=== PATIENT | male | born 2000 | race Caucasian/White ===

== ENCOUNTER 2021-01-01 04:44 | Emergency (ER) | payer OTHER ==
[~2021-01-01] VITALS: Ht 182.9 cm; Wt 72.9 kg
[2021-01-01] MEDS ORDERED: IBUP80TA PO (05:03)
[2021-01-01] MEDS ORDERED: ACET32TAB PO (05:03)
[2021-01-01] MEDS ORDERED: ACETAMINOPHEN TAB 650MG DOSE (2X325MG) PO ONE (06:15)
[2021-01-01] MEDS ORDERED: ONDANSETRON 4MG/2ML VIAL IV ONE (06:15)
[2021-01-01] MEDS ORDERED: NS 1,000 ML IV ONE (06:15)
[2021-01-01 06:49] LABS: HEMATOCRIT 42.8 % (42.0-52.0); HEMOGLOBIN 15.4 g/dl (13.5-17.5); MEAN CORPUSCULAR HEMOGLOBIN 30.5 pg (27.0-33.0); MEAN CORPUSCULAR VOLUME 84.8 fl (80.0-96.0); PLATELET COUNT, AUTOMATED 249 10^3/uL (150-450); RED BLOOD COUNT 5.05 10^6/uL (4.30-6.10); WHITE BLOOD COUNT 8.1 10^3/uL (4.0-10.0)
[2021-01-01] MEDS ORDERED: POTASSIUM CHLORIDE 10 MEQ SR TABLET PO ONE (07:55)
[2021-01-01] MEDS ORDERED: ONDA4TAB6 PO (07:55)
[2021-01-01 08:01] VITALS: BP 128/73
== END 2021-01-01 08:25 | disposition home or self-care (01) ==
LOC: M ED 04:44
DX: R11.2 Nausea with vomiting, unspecified (principal); T50.B95A Adverse effect of other viral vaccines, initial encounter
CPT/HCPCS: 80047; 85027; 96361; 96374; 99284; J2405

== ENCOUNTER 2021-06-27 07:31 | Emergency (ER) | payer OTHER ==
[~2021-06-27] VITALS: Ht 193 cm; Wt 73.3 kg
[~2021-06-27 07:31] MED LIST: ACET32TAB PO; IBUP80TA PO; ONDA4TAB6 PO
--- NOTE | 2021-06-27 08:04 | REP ---
INDICATION: PAIN. COMPARISON: None. TECHNIQUE: Four views FINDINGS: No acute fracture or destructive osseous lesion. The ulnar styloid is either none fused or there is an old healed fracture. IMPRESSION: No acute osseous abnormality. <Electronically signed by Hai Mota > 06/27/21 0802
[2021-06-27 11:10] VITALS: BP 124/82
== END 2021-06-27 11:11 | disposition home or self-care (01) ==
LOC: M ED 07:31
DX: M25.531 Pain in right wrist (principal); X50.0XXA Overexertion from strenuous movement or load, initial encounter; Y92.9 Unspecified place or not applicable; Y93.9 Activity, unspecified; Y99.0 Civilian activity done for income or pay

== ENCOUNTER 2021-07-31 05:51 | Emergency (ER) | payer OTHER ==
[~2021-07-31] VITALS: Ht 188 cm; Wt 74.7 kg
--- OUTSIDE RECORDS SUMMARY | 2021-07-31 05:57 | CCD | Continuity of Care Document ---
Author Author Shantell PRADO M.D. Organization Unknown Address [address] [place] [address] Phone [phone] Care Team Providers Care Manager Decision Support Name Role Phone Deondre SultanaM [phone] Problems Active Problems Provider Date Numbness of hand Travis Prado M.D. Onset: 01/22/2021 Ulnar nerve entrapment at right elbow Travis Prado M.D. On set: 01/22/2021 Social History Type Date Description Comments Sex Unknown Tobacco Use Start: Unknown Patient has never smoked Allergies, Adverse Reactions, Alerts Description No Known Drug Allergies Medications Active Medications SIG Qnty Indications Ordering Provide r Date Tylenol 8 Hour 650mg Tablets ER Travis Prado M.D. 01/22/2021 Immunizations Description No Information Available Vital Signs Date Vital Result Comment 01/24/2021 11:39am BP Systolic 120 mmHg BP Diastolic 80 mmHg Heart Rate 72 /min Height 72 inches 6'0" Weight 168.00 lb BMI (Body Mass Index) 22.8 kg/m2 [place] Body Weight 178 lb Results Description No Information Available Procedures Date Code Description Status 05/14/2021 29870 Office Consultation Level 4 Comp leted 04/25/2021 95007 Nerve Conduction 9-10 Studies Co mpleted 04/25/2021 52358 Needle Electromyogra phy Non Extremity Done With Nerve Conduction Completed 04/25/2021 51883 Needle Electromyography Complete , Five Or More Muscles Studied Completed 01/24/2021 75722 Nerve Conduction 9-10 Studies Co mpleted 01/24/2021 58184 Needle Electromyogra phy Non Extremity Done With Nerve Conduction Completed 01/24/2021 16084 Needle Electromyography Complete , Five Or More Muscles Studied Completed Medical Devices Description No Information Available Encounters Type Date Location Provider Dx Diagnosis Office Visit 05/14/2021 3:00p Main office - [place] Marisa Prado M.D. M79.601 Pain in right arm M62.441 Contracture of muscle, right hand R20.2 Paresthesia of skin M25.511 Pain in right shoulder Assessments Date Code Description Provider 05/14/2021 M79.601 Pain in right arm Marisa Eve, M.DEstefania 05/14/2021 M62.441 Contracture of muscle, right cheung d Marisa Eve, M.DEstefania 05/14/2021 R20.2 Paresthesia of skin Marisa Eve , Lorenzo.DEstefania 05/14/2021 M25.511 Pain in right shoulder Marisa La tif, M.DEstefania 04/25/2021 M79.641 Pain in right hand Travis Eve, M.D. 04/25/2021 G56.00 Carpal tunnel syndrome, unspecif ied upper limb Travis Eve, M.D. 04/25/2021 M25.511 Pain in right shoulder Travis Lat if, M.D. 04/25/2021 M54.12 Radiculopathy, cervical region A bdul Eve, M.D. 04/25/2021 M25.549 Pain in joints of unspecified mohan nd Travis Eve, M.D. 04/25/2021 M25.519 Pain in unspecified shoulder Abd ul Eve, M.D. 01/24/2021 G56.01 Carpal tunnel syndrome, right up per limb Travis Eve, M.D. 01/24/2021 M25.549 Pain in joints of unspecified mohan nd Travis Eve, M.D. 01/24/2021 R20.2 Paresthesia of skin Travis Eve, M.D. 01/24/2021 G56.20 Lesion of ulnar nerve, unspecifi ed upper limb Travis Eve, M.D. 01/24/2021 M79.601 Pain in right arm Travis Eve, M .DEstefania Plan of Treatment Future Appointment(s):* 06/11/2021 10:30 am - Marisa Prado M.D. at [facility] Functional Status Description No Information Available Mental Status Description No Information Available Referrals Description No Information Available
--- OUTSIDE RECORDS SUMMARY | 2021-07-31 05:57 | CCD | Continuity of Care Document ---
Author Shantell Davila M.D. Organization Unknown Address [address] [place] [address] Phone [phone] Care Team Providers Care Manager Steel Name Role Phone Deondre SultanaM [phone] Problems Active Problems Provider Date Numbness of [...] lb BMI (Body Mass Index) 22.8 kg/m2 [place] Body Weight 178 lb Results Description No Information Available Procedures Date Code Description Status 04/25/2021 00820 Nerve Conduction 9-10 Studies Co mpleted 04/25/2021 94611 Needle Electromyogra phy Non Extremity Done With Nerve Conduction Completed 04/25/2021 56715 Needle Electromyography Complete , Five Or More Muscles Studied Completed 01/24/2021 31200 Nerve Conduction 9-10 Studies Co mpleted 01/24/2021 94779 Needle Electromyogra phy Non Extremity Done With Nerve Conduction Completed 01/24/2021 67357 Needle Electromyography Complete , Five Or More Muscles Studied Completed Medical Devices Description No Information Available Encounters Description No Information Available Assessments Date Code Description Provider 04/25/2021 M79.641 Pain in right hand Travis [...] Pain in right arm Travis Eve, M .D. Plan of Treatment Future Appointment(s):* 06/11/2021 10:30 am - Marisa Prado M.D. at Main office - [place] Functional Status Description No Information Available Mental Status Description No Information Available Referrals Description No Information Available
--- OUTSIDE RECORDS SUMMARY | 2021-07-31 05:57 | CCD | Continuity of Care Document ---
Author Author Shantell PRADO M.D. Organization Unknown Address [address] [place] [address] Phone [phone] Care Team Providers Care Associate Professor Of Church Music Name Role Phone Deondre Sultana AUTM [phone] Problems Active Problems Provider Date Numbness of hand Travis Prado M.D. Onset: 01/22/2021 Ulnar nerve entrapment at right elbow Travis Prado M.D. On set: 01/22/2021 Social History Type Date Description Comments Sex Unknown Tobacco Use Start: Unknown Patient has never smoked Allergies and adverse reactions Description No Known Drug Allergies Medications Active Medications SIG Qnty Indications Ordering Provide r Date Tylenol 8 Hour 650mg Tablets ER Travis Prado M.D. 01/22/2021 Immunizations Description No Information Available Vital Signs Date Vital Result Comment 01/24/2021 11:39am BP Systolic 120 mmHg BP Diastolic 80 mmHg Heart Rate 72 /min Height 72 inches 6'0" Weight 168.00 lb BMI (Body Mass Index) 22.8 kg/m2 [place] Body Weight 178 lb Results Description No Information Available Procedures Date Code Description Status 06/12/2021 46676 MRI Upper Extremity Joint Comple jovan 06/12/2021 59952 MRI Upper Extremity Joint Comple jovan 06/12/2021 59977 MRI Brain W/O Contrast Completed 06/12/2021 39468 MRI Brain W/O Contrast Completed 05/14/2021 69548 Office Consultation Level 4 Comp leted 04/25/2021 73774 Nerve Conduction 9-10 Studies Co mpleted 04/25/2021 56209 Needle Electromyogra phy Non Extremity Done With Nerve Conduction Completed 04/25/2021 03936 Needle Electromyography Complete , Five Or More Muscles Studied Completed 01/24/2021 33099 Nerve Conduction 9-10 Studies Co mpleted 01/24/2021 74388 Needle Electromyogra phy Non Extremity Done With Nerve Conduction Completed 01/24/2021 29440 Needle Electromyography Complete , Five Or More Muscles Studied Completed Medical Devices Description No Information Available Encounters Type Date Location Provider Dx Diagnosis Office Visit 05/14/2021 3:00p Main office - [place] Marisa Prado M.D. M79.601 Pain in right arm M62.441 Contracture of muscle, right hand R20.2 Paresthesia of skin M25.511 Pain in right shoulder Assessments Date Code Description Provider 06/12/2021 R20.2 Paresthesia of skin Travis Eve, M.DEstefania 06/12/2021 R20.2 Paresthesia of skin MRI 06/12/2021 M79.601 Pain in right arm Travis Eve, M .D. 06/12/2021 M79.601 Pain in right arm MRI 05/14/2021 M79.601 Pain in right arm Marisa Eve, M.D. 05/14/2021 M62.441 Contracture of muscle, right cheung d Marisa Eve, M.DEstefania 05/14/2021 R20.2 Paresthesia of skin Marisa Eve , M.D. 05/14/2021 M25.511 Pain in right shoulder Marisa La tif, M.D. 04/25/2021 M79.641 Pain in right hand Travis [...] in joints of unspecified mohan nd Travis Prado M.D. 01/24/2021 R20.2 Paresthesia of skin Travis Prado M.D. 01/24/2021 G56.20 Lesion of ulnar nerve, unspecifi ed upper limb Travis Prado M.D. 01/24/2021 M79.601 Pain in right arm Lorenzo Foley Plan of Treatment No Information Available Functional Status Description No Information Available Mental Status Description No Information Available Referrals Refer to Reason for Referral Status Appt Date Created
--- OUTSIDE RECORDS SUMMARY | 2021-07-31 05:57 | CCD | Continuity of Care Document ---
Author Author Shantell RUIZ Organization Unknown Address [address] [place] [address] Phone [phone] Care Team Providers Care Shaping Machine Operator Name Role Phone Deondre Sultana [facility] [phone] Problems Active Problems Provider Date Numbness of [...] lb BMI (Body Mass Index) 22.8 kg/m2 [place] Body Weight 178 lb Results Description No Information Available Procedures Date Code Description Status 06/12/2021 78032 MRI Upper Extremity Joint Comple jovan 06/12/2021 57382 MRI Upper Extremity Joint Comple jovan 06/12/2021 81110 MRI Brain W/O Contrast Completed 06/12/2021 00050 MRI Brain W/O Contrast Completed 05/14/2021 40777 Office Consultation Level 4 Comp leted 04/25/2021 37865 Nerve Conduction 9-10 Studies Co mpleted 04/25/2021 19269 Needle Electromyogra phy Non Extremity Done With Nerve Conduction Completed 04/25/2021 41255 Needle Electromyography Complete , Five Or More Muscles Studied Completed 01/24/2021 23357 Nerve Conduction 9-10 Studies Co mpleted 01/24/2021 10020 Needle Electromyogra phy Non Extremity Done With Nerve Conduction Completed 01/24/2021 96856 Needle Electromyography Complete , Five Or More Muscles Studied Completed Medical Devices Description No Information Available Encounters Type Date Location Provider Dx Diagnosis Office Visit 05/14/2021 3:00p Main office - [place] Marisa Eve , M.DEstefania M79.601 Pain in right arm M62.441 Contracture of muscle, right hand R20.2 Paresthesia of skin M25.511 Pain in right shoulder Assessments Date Code Description Provider 06/12/2021 R20.2 Paresthesia of skin Travis Eve, M.D. 06/12/2021 R20.2 Paresthesia of skin MRI 06/12/2021 M79.601 Pain in right arm Travis Eve, M .D. 06/12/2021 M79.601 Pain in right arm MRI 05/14/2021 M79.601 Pain in right arm Marisa Eve, M.D. 05/14/2021 M62.441 Contracture of muscle, right cheung d Marisa Eve, M.D. 05/14/2021 R20.2 Paresthesia of skin Marisa Eve [...] joints of unspecified mohan nd Travis Eve, Tj 01/24/2021 R20.2 Paresthesia of skin Travis Eve, Tj 01/24/2021 G56.20 Lesion of ulnar nerve, unspecifi ed upper limb Travis Eve, Tj 01/24/2021 M79.601 Pain in right arm Lorenzo Foley Plan of Treatment Future Appointment(s):* 07/02/2021 10:45 am - Marisa Prado M.D. at Main office - [place] Functional Status Description No Information Available Mental Status Description No Information Available Referrals Refer to Reason for Referral Status Appt Date Created
--- OUTSIDE RECORDS SUMMARY | 2021-07-31 05:57 | CCD ---
Author Author [facility] Organization [facility] Address Unknown Phone Unavailable Care Team Providers Care Hotshot Superintendent Name Role Phone ANTIONE BLAS MD Unavailable Unavailable ANTIONE BLAS MD Unavailable Unavailable ANTIONE BLAS MD Unavailable Unavailable ANTIONE BLAS MD Unavailable Unavailable ANTIONE BLAS MD Unavailable Unavailable ANTIONE BLAS MD Unavailable Unavailable ANTIONE BLAS MD Unavailable Unavailable ANTIONE BLAS MD Unavailable Unavailable ANTIONE BLAS MD Unavailable Unavailable ANTIONE BLAS MD Unavailable Unavailable ANTIONE BLAS MD Unavailable Unavailable ANTIONE BLAS MD Unavailable Unavailable ANTIONE BLAS MD Unavailable Unavailable ANTIONE BLAS MD Unavailable Unavailable ANTIONE BLAS MD Unavailable Unavailable ANTIONE BLAS MD Unavailable Unavailable ANTIONE BLAS MD Unavailable Unavailable ANTIONE BLAS MD Unavailable Unavailable ANTIONE BLAS MD Unavailable Unavailable ANTIONE BLAS MD Unavailable Unavailable ANTIONE BLAS MD Unavailable Unavailable ANTIONE BLAS MD Unavailable Unavailable ANTIONE BLAS MD Unavailable Unavailable ANTIONE BLAS MD Unavailable Unavailable ANTIONE BLAS MD Unavailable Unavailable ANTIONE BLAS MD Unavailable Unavailable ANTIONE BLAS MD Unavailable Unavailable ANTIONE BLAS MD Unavailable Unavailable ANTIONE BLAS MD Unavailable Unavailable ANTIONE BLAS MD Unavailable Unavailable ANTIONE BLAS MD Unavailable Unavailable ANTIONE BLAS MD Unavailable Unavailable ANTIONE BLAS MD Unavailable Unavailable ANTIONE BLAS MD Unavailable Unavailable ANTIONE BLAS MD Unavailable Unavailable ANTIONE BLAS MD Unavailable Unavailable ANTIONE BLAS MD Unavailable Unavailable ANTIOEN BLAS MD Unavailable Unavailable ANTIONE BLAS MD Unavailable Unavailable ROOPA, ANTIONE MD Unavailable Unavailable ROOPA, ANTIONE MD Unavailable Unavailable ROOPA, ANTIONE MD Unavailable Unavailable ROOPA, ANTIONE MD Unavailable Unavailable UNKNOWN, [facility] Unavailable Unavailable MONA, L PAULO MD Unavailable Unavailable MONA, L PAULO MD Unavailable Unavailable MONA, L PAULO MD Unavailable Unavailable MONA, L PAULO MD Unavailable Unavailable MONA, L PAULO MD Unavailable Unavailable MONA, L PAULO MD Unavailable Unavailable MONA, L PAULO MD Unavailable Unavailable MONA, L PAULO MD Unavailable Unavailable MONA, L PAULO MD Unavailable Unavailable MONA, L PAULO MD Unavailable Unavailable MONA, L PAULO MD Unavailable Unavailable MONA, L PAULO MD Unavailable Unavailable MONA, L PAULO MD Unavailable Unavailable MONA, L PAULO MD Unavailable Unavailable MONA, L PAULO MD Unavailable Unavailable MONA, L PAULO MD Unavailable Unavailable MONA, L PAULO MD Unavailable Unavailable MONA, L PAULO MD Unavailable Unavailable MONA, L PAULO MD Unavailable Unavailable MONA, L PAULO MD Unavailable Unavailable Re-disclosure Warning The records that you are about to access may contain information from federally-assisted alcohol or drug abuse programs. If such information is present, then the following federally mandated warning applies: This information has been disclosed to you from records protected by federal confidentiality rules (42 CFR part 2). The federal rules prohibit you from making any further disclosure of this information unless further disclosure is expressly permitted by the written consent of the person to whom it pertains or as otherwise permitted by 42 CFR part 2. A general authorization for the release of medical or other information is NOT sufficient for this purpose. The Federal rules restrict any use of the information to criminally investigate or prosecute any alcohol or drug abuse patient.The records that you are about to access may contain highly sensitive health information, the redisclosure of which is protected by Article 27-F of the [facility] Public Health law. If you continue you may have access to information: Regarding HIV / AIDS; Provided by facilities licensed or operated by the [facility] Office of Mental Health; or Provided by the [facility] Office for People With Developmental Disabilities. If such information is present, then the following [facility] mandated warning applies: This information has been disclosed to you from confidential records which are protected by state law. State law prohibits you from making any further disclosure of this information without the specific written consent of the person to whom it pertains, or as otherwise permitted by law. Any unauthorized further disclosure in violation of state law may result in a fine or mcfp sentence or both. A general authorization for the release of medical or other information is NOT sufficient authorization for further disc losure. Encounters Encounter Providers Location Date Indications Data Source(s ) Outpatient Attender: ANTIONE BLAS MD Main office - [facility] 05/14/2021 03:00:00 PM EDT [facility] ([facility] Emergency Attender: PAULO DUNN MDConsultant: EDILBERTO KUMAR OWN 03/08/2021 11:55:00 PM EDT - 03/09/2021 04:05:00 AM EDT [facility] Patient discharged. Immunizations Vaccine Date Status Description Data Source(s) COVID-19 VACCINE Pfizer 12/31/2020 12:00:00 AM EDT completed [facility] Vaccine Series Complete: NOThis Data was Submitted to [facility] Via [employer]. Medications Medication Brand Name Start Date Product Form Dose Route Admi nistrative Instructions Pharmacy Instructions Status Indications Reaction Description Data Source(s) 8 HR Acetaminophen 650 MG Extended Release Oral Tablet [Tyle nol] Tylenol 8 Hour 01/22/2021 12:00:00 AM EDT active [facility] ([facility] ) Insurance Providers Payer name Policy type / Coverage type Policy ID Covered democrat ID Covered democrat's relationship to renner Policy Renner Plan Information [facility] ACTIVE DUTY [id number] SP [id number] [facility] HUMANA - O/P [id number] Problems, Conditions, and Diagnoses Code Display Name Description Problem Type Effective Dates Data Source(s) [id number] Migraine without aura, not intractable, without status migrainosus Migraine without aura, not intractable, without status migrainosus Diagnosis 03/08/2021 11:55:00 PM EDT [facility] R519 Headache, unspecified Headache, unspecified Diagnosis 03/08/2021 11:55:00 PM EDT [facility] [id number] 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 Problem 01/22/2021 12:00:00 AM EDT [facility] ([facility]) [id number] Numbness of hand Numbness of hand Problem 01/22/2021 12 :00:00 AM EDT [facility] ([facility] ) Surgeries/Procedures Procedure Description Date Indications Data Source(s) MRI BRAIN BRAIN STEM W/O CONTRAST MATERIAL 06/12/2021 12:00:00 AM EDT [facility] ([facility] ) MRI BRAIN BRAIN STEM W/O CONTRAST MATERIAL 06/12/2021 12:00:00 AM EDT [facility] ([facility] ) MRI Upper Extremity Joint 06/12/2021 12:00:00 AM EDT [facility] ([facility] ) MRI Upper Extremity Joint 06/12/2021 12:00:00 AM EDT [facility] ([facility], ) OFFICE CONSULTATION NEW/ESTAB PATIENT 60 MIN 12:00:00 AM EDT [facility] ([facility], ) Needle electromyography, each extremity, with related paraspinal areas, when performed, done with nerve conduction, amplitude and latency/velocity study; complete, five or more muscles studied, innervated by three or more nerves or four or more spinal levels (list separately in addition to the code for primary procedure). 04/25/2021 12:00:00 AM EDT [facility] ([facility], ) Needle Electromyography Non Extremity Done With Nerve Conduc tion 04/25/2021 12:00:00 AM EDT [facility] ([facility] ) Nerve Conduction 9-10 Studies 04/25/2021 12:00:00 AM E DT [facility] ([facility], ) Needle electromyography, each extremity, with related paraspinal areas, when performed, done with nerve conduction, amplitude and latency/velocity study; complete, five or more muscles studied, innervated by three or more nerves or four or more spinal levels (list separately in addition to the code for primary procedure). 01/24/2021 12:00:00 AM EDT [facility] ([facility], ) Needle Electromyography Non Extremity Done With Nerve Conduc tion 01/24/2021 12:00:00 AM EDT [facility] ([facility] ) Nerve Conduction 9-10 Studies 01/24/2021 12:00:00 AM E DT [facility] ([facility] ) Results ID Date Data Source [id number] 03/10/2021 09:58:00 [place] [address] RESPIRATORY CARE REPORT ==== ---------NAME------- NUMBER SEX AGE ADMIT DISC. XRAY# F/C TYPEROMAN SHANTELL Gutierrez [id number] M 20 03/08/21 03/09/21 [id number] SB4 E/R DATE OF : 2000 M/R# [id number] PH#: [phone] TR-07 LOCATION: EMERGENCY DEPT EKG 25008 COMP LETE:03/09/21 00:34 VMT 30007 PHYSICIAN: WILFREDO DUNN NOR Name Value Range Interpretation Code Description Data Norma rce(s) Supporting Document(s) ID Date Data Source [id number] 03/08/2021 11:55:00 PM EDT [facility] 1 OrderSheet [facility] Emergency Department [address] [place] [address] Phone #: ext- [phone] 03/08/2021 23:38 Patient: SHANTELL MARRUFO Sex: M : 2000 Age: 20yWEIGHT:74.3 kg (S) HEIGHT:72 inches (S) BMI:22.2ALLERGIES: No Known Drug AllergyCHIEF COMPLAINT: headacheDIAGNOSIS: Anxiety, MigraineLAB ORDERSOrder Description Priority Entered Acknowledged InitialedCBC w Diff STAT 23:44 03/08/2021 00:23 03/09/2021 Paulo Dunn MD; Radha Hickey R.N.CMP STAT 23:44 03/08/2021 00:23 03/09/2021 Paulo Dunn MD; Radha Hikcey R.N.Troponin-T STAT 23:44 03/08/2021 00:23 03/09/2021 Paulo Dunn MD; Radha Hickey R.N.TSH STAT 23:44 03/08/2021 00:23 03/09/2021 Paulo Dunn MD; Radha Hickey R.N.ETOH STAT 23:44 03/08/2021 00:23 03/09/2021 Paulo Dunn MD; Radha Hickey R.N.Urinalysis (Clean STAT 23:44 03/08/2021 Ack'd: 00:23 00:52 03/09/2021atch) Paulo Dunn MD; 03/09/2021 Tristian Edward Laura R.N.Urine Drug Screen STAT 23:44 03/08/2021 Ack'd: 00:23 00:52 03/09/2021 Paulo Dunn MD; 03/09/2021 Tristian Edward Laura R.N.Acetaminophen STAT 23:44 03/08/2021 00:23 03/09/2021evel Paulo Dunn MD; Radha Hickey R.N.Salicylate Level STAT 23:44 0 03/08/2021 00:23 03/09/2021 Paulo Dunn MD; Radha Hickey R.N. 2 OrderSheet [facility] Emergency Department [address] [place] [address] Phone #: ext- [phone] 03/08/2021 23:38 Patient: SHANTELL MARRUFO Sex: M : 2000 Age: 20yD-Dimer STAT 23:50 03/08/2021 00:23 03/09/2021 Paulo Dunn MD; Radha Hickey R.N.DIAGNOSTIC STUDY ORDERSOrder Description Priority Entered Acknowledged InitialedCT Head W/O Cont STAT 23:50 03/08/2021 00:23 03/09/2021(Oxygen?(No)) Paulo Dunn MD; Radha Hickey R.N. Reason for Study: hallucinationsMEDICATION/IV/DRIP/FLUID ORDERSOrder Description Priority Entered Acknowledged InitialedToradol IVP 30 mg 03:38 03/09/2021 03:52 Edelmira,(NOW x1) Paulo Dunn MD; Radha DollGENERAL ORDERSOrder Description Priority Entered Acknowledged InitialedEKG 23:44 03/08/2021 23:51 Mona Hickey Norma MD; Radha Doll[Electronically signed by Paulo Dunn MD (03:46 03/09/2021)][Electronically signed by Radha Hickey R.N. (04:05 03/09/2021)][Electronically locked by Radha Hickey R.N. (04:05 03/09/2021)] Name Value Range Interpretation Code Description Data Norma rce(s) Supporting Document(s) ID Date Data Source [id number] 03/08/2021 11:55:00 PM EDT [facility] 1 Medication Reconciliation Report [facility] Emergency Department [address] [place] [address] Phone #: ext- [phone] 03/08/2021 23:38 Patient: SHANTELL MARRUFO Sex: M : 2000 Age: 20yWeight: 74.3 kgHeight/Length: 72 in.BMI: 22.2ALLERGIES: No Known Drug AllergyThe patient's Home Medications are listed below:NONE.The source(s) of the original Home Medication information:Not obtained.The following Medications were given to the patient in the Emergency Department:Toradol [IVP] IVP 30 mg, administered: 03:52 03/09/2021The following Medications were prescribed to the patient:None. Name Value Range Interpretation Code Description Data Norma rce(s) Supporting Document(s) ID Date Data Source [id number] 03/08/2021 11:55:00 PM EDT [place] [address] Medication Administration Record [facility] Emergency Department [address] [place] [address] Phone #: ext- [phone] 03/08/2021 23:38 Patient: SHANTELL MARRUFO Sex: M : 2000 Age: 20yWeight: 74.3 kgHeight/Length: 72 inBMI: 22.2ALLERGIES: No Known Drug Allergy Date/Time Medication Administered Medication OrderedGiven TORADOL [IVP] (KETOROLAC Toradol IVP 30 mg (NOW x1)03:52 03/09/2021 TROMETHAMINE)Radha Hickey R.N. Dose: 30 mg IVP Site: [facility] Name Value Range Interpretation Code Description Data Norma rce(s) Supporting Document(s) ID Date Data Source [id number] 03/08/2021 11:55:00 PM EDT [facility] 1 General Instructions [facility] Emergency Department [address] [place] [address] Phone #: ext- [phone] 03/08/2021 23:38 Patient: SHANTELL MARRUFO Sex: M : 2000 Age: 20yAcute migraine headache.INSTRUCTIONS(return if worse or any new symptoms. Take all medications as previously instructed. Start seeing atherapist or psychiatrist so you can develop coping mechanisms to deal with the significant amount ofstress you are undergoing.).Warnings: Further evaluation is necessary.GENERAL WARNINGS: Return or contact your physician immediately if your condition worsens orchanges unexpectedly, if not improving as expected, or if other problems arise.Your Current Medications: .No home medication.Follow- up:Follow up with your doctor even if well. Call for an appointment. Reason for referral: evaluation. Summaryof care provided to patient via paper.Understanding of the discharge instructions verbalized by patient. ADDITIONAL INFORMATIONAnxiety ReactionAnxiety is the feeling we all get when we think something bad might happen. It is a normal responseto stress and usually causes only a mild reaction. When anxiety becomes more severe, itcan interfere with daily life. In some cases, you may not even be aware of what it i s you're anxiousabout. There may also be a genetic link or it may be a learned behavior in the home.Both psychological and physical triggers cause stress reaction. It's often a response to fear oremotional stress, real or imagined. This stress may come from home, family, work, or socialrelationships.During an anxiety reaction, you may feel: Helpless 2 General Instructions [facility] Emergency Department [address] [place] [address] Phone #: ext- [phone] 03/08/2021 23:38 Patient: SHANTELL MARRUFO Sex: M : 2000 Age: 20y Nervous Depressed IrritableYour body may show signs of anxiety in many ways. You may experience: Dry mouth Shakiness Dizziness Weakness Trouble breathing Breathing fast (hyperventilating) Chest pressure Sweating Headache Nausea Diarrhea Tiredness Inability to sleep Sexual problemsHome care Try to locate the sources of stress in your life. They may not be obvious. These may include: o Daily hassles of life (such as traffic jams, missed appointments, or car troubles) o Major life changes, both good (new baby or job promotion) and bad (loss of job or loss of loved one) o Overload: feeling that you have too many responsibilities and can't take care of all of them at once o Feeling helpless or feeling that your problems are beyond what you're able to solve Notice how your body reacts to stress. Learn to listen to your body signals. This will help you 3 General Instructions [facility] Emergency Department [address] [place] [address] Phone #: ext- [phone] 03/08/2021 23:38 Patient: SHANTELL MARRUFO Sex: M : 2000 Age: 20y take action before the stress becomes severe. When you can, do something about the source of your stress. (Avoid hassles, limit the amount of change that happens in your life at one time and take a break when you feel overloaded). Unfortunately, many stressful situations can't be avoided. It is necessary to learn how to better manage stress. There are many proven methods that will reduce your anxiety. These include simple things like exer cise, good nutrition, and adequate rest. Also, there are certain techniques that are helpful: o Relaxation o Breathing exercises o Visualization o Biofeedback o MeditationFor more information about this, consult your healthcare provider or go to a local bookstore fadi the many books and tapes available on this subject.Follow-up careIf you feel that your anxiety is not responding to self-help measures, contact your healthcare provideror make an appointment with a counselor. You may need short- term psychological counseling andtemporary medicine to help you manage stress.Call [phone] if any of these happen: Trouble breathing Confusion Drowsiness or trouble wakening Fainting or loss of consciousness Rapid heart rate Seizure New chest pain that becomes more severe, lasts longer, or spreads into your shoulder, arm, neck, jaw, or back 4 General Instructions [facility] Emergency Department [address] [place] [address] Phone #: [phone] ext- [phone] 03/08/2021 23:38 Patient: SHANTELL MARRUFO Sex: M : 2000 Age: 20yWhen to seek medical adviceCall your healthcare provider right away if any of these happen: Your symptoms get worse Severe headache not relieved by rest and mild pain reliever [id number] [employer]. [address] [place] [address]. All rights reserved. This information is not intended as asubstitute for professional medical care. Always follow your healthcare professional's instructions.Migraine HeadacheA migraine headache is an often severe type of headache. It's different from other types ofheadaches in that symptoms other than pain occur with the it. For instance, a classic migraineheadache means visual symptoms (or aura) such as flashes of light, blind spots or other visionchanges, warns you a headache is coming on. Nausea and vomiting, lightheadedness, sensitivity tolight or sound, and other visual disturbances are common migraine symptoms. The pain may lastfrom a few hours to several days. It's not clear why migraines occur, but certain factors called triggerscan raise the risk of having a migraine attack. A migraine may be triggered by emotional stress ordepression, or by hormone changes during the menstrual cycle. Other triggers include certain birthcontrol pills, overuse of migraine medicines, alcohol or caffeine, foods with tyramine such as agedcheese and wine, eyestrain, weather changes, missed meals, or too little or too much sleep.Home careFollow these tips when taking care of yourself at home: Don't drive yourself home if you were given pain medicine for your headache or are having visual symptoms. Instead, have someone else drive you home. Try to sleep when you get home. You should feel much better when you wake up. Cold can help ease migraine symptoms. Put an ice pack wrapped in a thin towel on your forehead or at the base of your skull. Put heat on the back of your neck to help ease any neck spasm. Drink only clear liquids or eat a light diet until your symptoms get better. This will help you prevent nausea and vomiting.How to prevent migrainesPay attention to what seems to trigger your headache. Try to stay away from the triggers when youcan. If you have headaches often, consider keeping a headache diary. In it, write down what youwere doing, feeling, or eating in the hours before each headache. Show this to your healthcareprovider to help find the cause of your headaches. 5 General Instructions [facility] Emergency Department [address] [place] [address] Phone #: ext- [phone] 03/08/2021 23:38 Patient: SHANTELL MARRUFO Sex: M : 2000 Age: 20yIf stress seems to be a trigger for your headaches, figure out what is causing stress in your life. Learnnew ways to handle your stress. Ideas include regular exercise, biofeedback, self-hypnosis, yoga,and meditation. Talk with your healthcare provider to find out more information about managingstress. Many books and digital media are also available on this subject.Tyramine is a substance found in many foods. It can trigger a migraine in some people. These foodscontain tyramine: Chocolate Yogurt All cheeses, but especially aged cheeses Smoked or pickled fish and meat, including corado, caviar, bologna, pepperoni, and salami Liver Avocados Bananas Figs Raisins Red wineTry staying away from these foods for 1 to 2 months to see if you have fewer headaches.How to treat future headaches Take time out at the first sign of a headache, if possible. Find a quiet, dark, comfortable place to sit or lie down. Let yourself relax or sleep. Put an ice pack wrapped in a thin towel on your forehead or on the area of greatest pain. A heating pad and massage may help if you are having a muscle spasm and tightness in your neck. If you have been prescribed a medicine to stop a migraine headache, use this at the first warning sign of the headache for best results. First signs may be an aura or pain. If you have been prescribed a medicine to prevent the headaches, it's important to take the medicine as directed. Many of these medicines may take a few weeks to start preventing headaches, so it's important to not give up on them right away. If you continue to have just as many headaches after taking these medicines for a while, talk with your doctor to see if the dose needs to be changed or if a different medicine is advised. 6 General Instructions [facility] Emergency Department [address] [place] [address] Phone #: ext- [phone] 03/08/2021 23:38 Patient: SHANTELL MARRUFO Sex: M : 2000 Age: 20y If you need to take medicine often for your migraine, talk with your healthcare provider about other ways to prevent your headaches.Follow-up careFollow up with your healthcare provider, or as advised. Talk with your provider if you have frequentheadaches. He or she can figure out a treatment plan. Ask if you can have medicine to take at homethe next time you get a bad headache. This may keep you from having to visit the emergencydepartment in the future. You may need to see a headache specialist (neurologist) if you continue tohave headaches.When to seek medical adviceCall your healthcare provider right away if any of these occur: Your head pain gets worse, or doesn't get better within 24 hours You can't keep liquids down (repeated vomiting) Pain in your sinuses, ears, or throat Fever of 100.4 F (38 C) or higher, or as directed by your healthcare provider Stiff neck Extreme drowsiness, confusion, or fainting Dizziness, or dizziness with spinning sensation (vertigo) Weakness or trouble feeling in an arm or leg, or on one side of your face Trouble talking or seeing [employer]. [address] [place] [address], [place] [address]. All rights reserved. This information is not intended as asubstitute for professional medical care. Always follow your healthcare professional's instructions. You have been given the following additional information: Anxiety Reaction Headache, Migraine, Classic(Electronically signed by Paulo Dunn MD 03/09/2021 03:46) 7 General Instructions [facility] Emergency Department [address] [place] [address] Phone #: [phone]- [phone] 03/08/2021 23:38 Patient: SHANTELL MARRUFO Sex: M : 2000 Age: 20y Name Value Range Interpretation Code Description Data Norma rce(s) Supporting Document(s) ID Date Data Source [id number] 03/08/2021 11:55:00 PM EDT [facility] 1 Clinical Report - Nurses [facility] Emergency Department [address] [place] [address] Phone #: ext- [phone] 03/08/2021 23:38 Patient: SHANTELL MARRUFO Sex: M : 2000 Age: 20yTRIAGEArrived by private vehicle. Historian: patient. ( Patient states that starting at 1700 today patient hasbegun to have hallucinations of nats floating in the air. Patient also states that he is having intermittent leftchest pain that does not radiate. Patient also states migraine.).Acuity: LEVEL 3.Chief Complaint: HALLUCINATIONS.Alert. No acute distress.Onset: today.SEPSIS SCREEN: SIRS SCREEN NEGATIVE. SEPSIS SCREEN NEGATIVE. No suspected or confirmedsigns of infection present. --23:44 03/08/21 Tristian Edward23:39 03/08/21. BP: 150/91 taken on the right arm, via an automated monitor, while sitting. MAP: 110.HR: 85 (regular, normal rate and strong). RR: 16 (regular, unlabored and normal). O2 saturation: 100% onroom air. Temp: 98.1 F (oral). Pain level now: 11/28. --23:44 03/08/21 Tristian Edward.Weight: 74.3 kg stated. Height/Length: 72 inches Per Jessika ent. BMI: 22.2. --23:39 03/08/21 Tristian Edward.MedicationsNone. --23:41 03/08/21 Tristian Edward.AllergiesNo Known Drug Allergy. --23:41 03/08/21 Tristian Edward.PROBLEMS:no known problems.HistorySOCIAL HX: Never smoker. No alcohol use or drug use. The patient was offered HIV testing butdeclined and hepatitis C testing but declined. The patient has not traveled outside the [place]Infectious disease exposure: No infectious disease exposure.SELF HARM ASSESSMENT: Self harm assessment was performed. The patient answered "no" to thequestion(s) "Have you recently felt down, depressed, or hopeless?", "Do you have thoughts of harming orkilling yourself?", "Do you have a plan for harming or killing yourself?", "Have you recently had thoughtsabout harming or killing others?", "Do you have any dangerous items in your possession?", "Have younoticed less interest or pleasure in doing things?", "Are you here because you tried to hurt yourself?" and"Have you ever tried to hurt yourself before today?". The patient reports their behavior included 2 Clinical Report - Nurses [facility] Emergency Department [address] [place] [address] Phone #: ext- [phone] 03/08/2021 23:38 Patient: SHANTELL MARRUFO Sex: M : 2000 Age: 20y hallucinations. ABUSE ASSESSMENT: Abuse assessment. Abuse denied. No suspicion of abuse. No report of abuse. NUTRITIONAL RISK ASSESSMENT: The nutritional risk assessment revealed no deficiencies. FUNCTIONAL ASSESSMENT: Functional assessment: no impairments noted. LEARNING NEEDS ASSESSMENT: The learning needs assessment revealed no barriers. FALL RISK ASSESSMENT: Fall risk assessment completed. No risk factors identified. Fall interventions initiated. Patient placed on stretcher. Bed in low position. Brakes on. SKIN INTEGRITY ASSESSMENT: Skin integrity risk assessment completed. No skin integrity risk identified. --23:44 03/08/21 Tristian Edward. Interventions Identification band on patient. To treatment room. --23:44 03/08/21 Tristian Edward.PHYSICAL ASSESSMENTAmbulatory to room.GENERAL / NEURO / PSYCH: Alert. Oriented X 4. Appears in no acute distress. Speech within normallimits. Affect appears normal. Patient appears calm and cooperative. Good eye contact. Patientappears well-nourished and neat and clean.RESPIRATORY: Respirations not labored. Breath sounds within normal limits.CVS: Normal heart rate and rhythm. Capillary refill less than 2 sec onds.GI / : Abdomen soft. Bowel sounds within normal limits.SKIN: Skin intact. Skin is warm and dry. Skin color is within normal limits. --23:44 03/08/21 Tristian Edward.NURSING PROGRESS NOTESEKG time: (late entry - 23:49 03/08/2021). EKG was performed by a nurse and shown to the EDphysician. --23:51 03/08/21 Radha Hickey R.N. Monitoring of patient in place. Patient gowned. Head of bed elevated. Reassurance given. ( All valuables taken and placed behind nurses station. Pt denies SI/HI.). Two patient identifiers checked. Call light placed in reach. Side rails up x 2. Bed placed in lowest position. Brakes of bed on. --23:52 03/08/21 Radha Hickey R.N. 00:24 03/09/2021 Site #1 started via IV in the left antecubital space with an 20g angiocath, with aseptic technique; one attempt. Blood drawn: rainbow set. Sent to the lab. Saline lock flushed with 10 mL saline. --00:24 03/09/21 Radha Hickey R.N. ( Patient's leadership at bedside at this time.). --01:00 03/09/21 Radha Hickey R.N. 3 Clinical Report - Nurses [facility] Emergency Department [address] [place] [address] Phone #: ext- [phone] 03/08/2021 23:38 Patient: SHANTELL MARRUFO Sex: M : 2000 Age: 20y 01:01 03/09/21. BP: 131/84. MAP: 99. HR: 88. RR: 16. O2 saturation: 10 0% on room air. --01:01 03/09/21 Radha Hickey R.N. The patient is calm and resting quietly. --01:01 03/09/21 Radha Hickey R.N. 01:57 03/09/21. BP: 137/90. MAP: 105. HR: 79. RR: 18. O2 saturation: 100% on room air. --01:58 03/09/21 Radha Hickey R.N. The patient is calm and resting quietly. --01:58 03/09/21 Radha Hickey R.N. 03:52 03/09/2021 Toradol (Ketorolac Tromethamine) IVP 30 mg given via site #1. Allergies verified and confirmed 5 rights. IV patency established. IV site checked: no pain, redness, or swelling. IV flushed thoroughly pre- and post-medication administration. IVP given by RN. Information reviewed with patient. Verbalizes understanding. --03:52 03/09/21 Radha Hickey R.N.DISPOSITION / DISCHARGE 04:04 03/09/2021 Site #1 removed upon discharge. Bandaid applied. --04:04 03/09/21 Radha Hickey R.N. Condition at departure: stable. No learning barriers present. Discharge instructions provided and reviewed with the patient. Reviewed warnings. Reviewed medication(s). T reatments reviewed. Reviewed referral to a psychiatrist and family practice for followup. Patient verbalized understanding. Written instructions provided in Icelandic. The patient was discharged home and accompanied by supervisor screen printing. He left ambulatory and via private vehicle. Electrotyper driving. --04:05 03/09/21 Radha Hickey R.N. 04:03 03/09/21. BP: 119/73. MAP: 88. HR: 79. RR: 16. O2 saturation: 99% on room air. Temp: 98.1 F. Pain level now: 0/10. --04:05 03/09/21 Radha Hickey R.N.Locked/Released at 03/09/2021 04:05 by Radha Hickey R.N. Name Value Range Interpretation Code Description Data Norma rce(s) Supporting Document(s) ID Date Data Source [id number] 03/08/2021 11:55:00 PM EDT [facility] 1 Clinical Report - Physicians/Mid Levels [facility] Emergency Department [address] [place] [address] Phone #: ext- [phone] 03/08/2021 23:38 Patient: SHANTELL MARRUFO Sex: M : 2000 Age: 20y Arrived- By private vehicle. Historian- patient. Disposition decision: 03:41 03/09/2021.HISTORY OF PRESENT ILLNESS Chief Complaint: HEADACHE. This started just prior to arrival and is now gone. At its maximum, severity described as mild. When seen in the E.D., it was almost gone. Modifying factors. Not worsened by anything. Not relieved by anything. No loss of appetite, weight loss, fatigue, muscle aches or weakness. He has had a headache and visual disturbance. Denies sleep problem. No decreased urine output. (Patient states that starting at 1700 today patient has begun to have hallucinations of nats floating in the air. Patient also states that he is having intermittent left chest pain that does not radiate. Patient also states he has a mild migraine.). Similar symptoms previously. None. Recent medical care: Not recently seen/assessed.REVIEW OF SYSTEMS No fever, sore throat or throat or sinus drainage. No nasal congestion or congestion, cough, difficulty breathing or chest pain. No abdominal pain or pain, nausea, vomiting or diarrhea. No black stools, bloody stools or difficulty with urination or urination. No skin rash or rash, back pain or pain or calf pain. No blackouts, double vision, chills, fever or decreased vision. No ear pain, runny nose, cough, diarrhea or nausea. No vomiting, urinary frequency, hematuria, joint pain or neck pain. No dizziness, seizure, suicidal thoughts or easy bruising. The patient has had a headache and headache, chest pain and anxiety. No difficulty with ambulation.PAST HISTORY See nurses notes. Problems: no known problems. Medications: None. Allergies: No Known Drug Allergy.SOCIAL HISTORY No drug use.ADDITIONAL NOTES 2 Clinical Report - Physicians/Mid Levels [facility] Emergency Department [address] [place] [address] Phone #: ext- [phone] 03/08/2021 23:38 Patient: SHANTELL MARRUFO Sex: M : 2000 Age: 20y The nursing notes have been reviewed.PHYSICAL EXAM Vital Signs: 03/09/2021 01:57 BP: 137/90. MAP: 105. HR: 79. RR: 18. O2 saturation: 100% on room air. 03/09/2021 01:01 BP: 131/84. MAP: 99. HR: 88. RR: 16. O2 saturation: 100% on room air. 03/08/2021 23:39 BP: sitting 150/91. MAP: 110. HR: 85. RR: 16. O2 saturation: 100% on room air. Temp: 98.1 F. Pain level now: 11/28. Have been reviewed and appear to be correct. Hypertensive. Heart rate normal. Respiratory rate normal. Temperature normal. Oxygen saturation normal. Appearance: Alert. No acute distress. Eyes: Pupils equal, round and reactive to light. Eyes normal inspection. ENT: Ears normal. Nose normal. Pharynx normal. Neck: Normal inspection. Neck supple. CVS: Normal heart rate and rhythm. Heart sounds normal. Pulses normal. Respiratory: No respiratory distress. Painless inspiration. Breath sounds normal. Chest nontender. Abdomen: No visible injury. Soft and nontender. Bowel sounds normal. Back: Normal inspection. No CVA tenderness. Skin: Normal skin color. Normal skin turgor. Extremities: No lower extremity edema. (decreased rom of right shoulder. right ring and small finger contracted and extensors weak. mild muscle wasting to right forearm and bicep). Neuro: Oriented X 3. No sensory deficit.LABS, X-RAYS, AND EKG Laboratory Tests: CBC w Diff: (CHAYO: 03/09/2021 00:21) ( MsgRcvd 03/09/2021 00:51) Final results Test Result Flag Units (Reference) CBC W/AUTOMATED DIFF COMPLETE BLOOD COUNT WBC 6.5 10/uL (4.2 - 11.0) RBC 4.91 10/uL (4.50 - 6.30) HEMOGLOBIN 15.1 g/dL (14.0 - 16.0) HEMATOCRIT 42.5 % (41.0 - 51.0) MCV 86.6 fL (80.0 - 94.0) MCH 30.8 pg (27.0 - 34.0) MCHC 35.5 g/dL (31.0 - 36.0) RDW 12.4 % (11.5 - 14.8) PLATELETS 288 10/uL (150 - 450) MPV 8.6 fL (7.4 - 10.4) NEUT 50.7 % (37.0 - 80.0) LYMPH 36.0 % (25.0 - 40.0) MONO 10.0 H % (3.0 - 8.0) EOS 1.9 % (0.0 - 7.0) BASO 1.1 % (0.0 - 2.0) %IG 0.3 H % (0.0 - 0.0) %NRBC 0.0 % (0.0 - 0.0) #NEUT 3.28 10/uL (2.00 - 6.90) #LYMPH 2.33 10/uL (0.60 - 3.40) #MONO 0.65 10/uL (0.00 - 0.90) #EOS 0.12 10/uL (0.00 - 0.70) #BASO 0.07 10/uL (0.00 - 0.20) #IG 0.02 10/uL (0.00 - 0.10) #NRBC 0.00 10/uL (0.00 - 0.00) 3 Clinical Report - Physicians/Mid Levels [facility] Emergency Department [address] [place] [address] Phone #: ext- [phone] 03/08/2021 23:38 Patient: SHANTELL MARRUFO Sex: M : 2000 Age: 20y MANUAL DIFF NOT INDICATED RBC MORPH NOT INDICATEDCMP: (CHAYO: 03/09/2021 00:21) ( MsgRcvd 03/09/2021 00:52) Final results Test Result Flag Units (Reference) COMPREHENSIVE METABOLIC PANEL COMPREHENSIVE METABOLIC PANEL SODIUM 140 mEq/L (134 - 153) POTASSIUM 3.8 mEq/L (3.6 - 5.0) CHLORIDE 105 mEq/L (98 - 107) CO2 22 MEQ/L (22 - 30) GLUCOSE 96 MG/DL (70 - 99) BUN 18 MG/DL (7 - 21) CREATININE 1.0 MG/DL (0.7 - 1.5) BUN/CREAT 18 (8 - 27) TOTAL PROTEIN 7.5 G/DL (6.3 - 8.2) ALBUMIN 4.8 G/DL (3.9 - 5.0) GLOBULIN 2.7 GM/DL (2.4 - 3.2) A/G RATIO 1.8 (0.8 - 2.0) CALCIUM 9.6 MG/DL (8.4 - 10.2) TOTAL BILI <0.7 MG/DL (0.2 - 1.3) ALKALINE PHOS 63 U/L (38 - 126) SGOT/AST 20 U/L (5 - 40) SGPT/ALT 12 U/L (7 - 56) ANION GAP 13.0 mmol/L (8.0 - 16.0) AGE 20 yrs NON-AA GFR >60 mL/min AFR AMER GFR >60 mL/min Male GFR Interprentation 20-49 yrs >60 mL/min Ncffbz84-14 yrs >56 mL/min Normal 60-69 yrs >49 mL/min Normal 70-79yrs>42 mL/min Normal 80 and above >35 mL/min Normal Female GFRInterpretation 20-39 yrs >60 mL/min Normal 40-49 yrs >58 mL/minNormal 50-59 yrs >51 mL/min Normal 60-69 yrs >45 mL/min Alciyd01- 79 yrs >39 mL/min Normal 80 and above >32 mL/min NormalTroponin-T: (CHAYO: 03/09/2021 00:21) ( MsgRcvd 03/09/2021 00:50) Final results Test Result Flag Units (Reference) TROPONIN T <0.01 NG/ML (0.00 - 0.10) TROPONIN T0.1 ng/ml Recommended as the clinical threshold value forTroponin T.TSH: (CHAYO: 03/09/2021 00:21) ( MsgRcvd 03/09/2021 01:02) Final results Test Result Flag Units (Reference) TSH 2.59 uIU/mL (0.47 - 5.01)ETOH: (CHAYO: 03/09/2021 00:21) ( [facility] 03/09/2021 00:52) Final results Test Result Flag Units (Reference) ALCOHOL <10.0 MG/DL ALCOHOL % 0.01 % (0.00 - 0.01) *FOR MEDICAL PURPOSES ONL Y*Urinalysis: (CHAYO: 03/09/2021 00:45) ( [facility] 03/09/2021 01:05) Final results Test Result Flag Units (Reference) URINALYSIS 4 Clinical Report - Physicians/Mid Levels [facility] Emergency Department [address] [place] [address] Phone #: ext- [phone] 03/08/2021 23:38 Patient: SHANTELL MARRUFO Sex: M : 2000 Age: 20y URINALYSIS SOURCE R COLOR yellow (NORMAL: Yello CLARITY clear (NORMAL: Clear SPEC GRAVITY 1.020 (1.001 - 1.030 pH 6 (5 - 9) GLUCOSE NORM (NORMAL: Negat BILIRUBIN NEG (NORMAL: Negat KETONE NEG (NORMAL: Negat PROTEIN NEG (NORMAL: Negat NITRITE NEG (NORMAL: Negat BLOOD NEG (NORMAL: Negat LEUK EST NEG (NORMAL: Negat UROBILINOGEN NOR (less than 1.0 MICROSCOPIC Not IndicateDrug Screen-Urine: (CHAYO: 03/09/2021 00:45) ( [facility] 03/09/2021 01:12) Final results Test Result Flag Units (Reference) DRUG SCREEN URINE URINE DRUG SCREEN AMPHETAMINES NEGATIVE (NORMAL: NEGAT BARBITURATES NEGATIVE (NORMAL: NEGAT BENZO NEGATIVE (NORMAL: NEGAT COCAINE NEGATIVE (NORMAL: NEGAT THC NEGATIVE (NORMAL: NEGAT OPIATES NEGATIVE (NORMAL: NEGAT PCP NEGATIVE (NORMAL: NEGAT \\BLDo\\URINE DRUG SCREEN INTERPRETATION\\BLDx\\ THE CUTOFFF LEVELS FORDETECTION ARE FOLLOWS: AMPHETAMINES 1000 ng/mlBARBITUARATES 200 ng/ml BENZODIAZEPINES 100 ng/mlTHC 50 ng/ml PHENCYCLIDINE 25 ng/mlOPIATES 300 ng/ml COCAINE 300 ng/mlALL POSITIVES ARE CONSIDERED PRESUMPTIVE POSITIVE CONFIRMATION WILL BE PERFORMED AT [facility].Acetaminophen Level: (CHAYO: 03/09/2021 00:21) ( [facility] 03/09/2021 00:52) Final results Test Result Flag Units (Reference) ACETAMINOPHEN <5.0 UG/ML (0.0 - 30.0)Salicylate Level: (CHAYO: 03/09/2021 00:21) ( [facility] 03/09/2021 01:05) Final results Test Result Flag Units (Reference) SALICYLATE <0.3 L mg/dL (2.0 - 20.0)D-Dimer: (CHAYO: 03/09/2021 00:21) ( [facility] 03/09/2021 01:24) Final results Test Result Flag Units (Reference) D-DIMER QUANT 0.31 ug/mL (0.27 - 0.50)CT Head W/O Cont: (CHAYO: 03/08/2021 23:55) ( [facility] 03/09/2021 00:42) Final results Exam CT HEAD W/[place] [address] ---------NAME--------- NUMBER SEX AGE ADMIT DISC. XRAY# F/C TYPE 5 Clinical Report - Physicians/Mid Levels [facility] Emergency Department [address] [place] [address] Phone #: ext- [phone] 03/08/2021 23:38 Patient: SHANTELL MARRUFO Sex: M : 2000 Age: 20yROMAN SHANTELL Gutierrez [id number] M 20 03/08/21 [id number] SB4 E/R DATE OF : 2000 M/R# [id number] #: [id number] TR-07 LOCATION: EMERGENCY DEPT TRANSCRIBED: 03/09/[address] HEAD W/O CONTRAST [id number] COMPLETED:03/09/21 15 DLA 39670 Reason(s): hallucinations PHYSICIAN: WILFREDO R A D I O L O G Y R E P O R T PATIENT HISTORY:ACTUAL DOSE 856.0 mGy*cm hallucinations chest painPatient male. Verification of 2 patient identifiers performed.Time Out performed. correct body part and side all verified prior toexamination. Exam has been sent to [facility] - If further informationis needed, the number is . Report will be faxed to ED and/orXray. / Exam Results (DICOM Hx)EXAM: CT Head Without IV contrast.CLINICAL HISTORY:ACTUAL DOSE 856.0 mGy*cm hallucinations chest pain Patientmale. Verification of 2 patient identifiers performed. Time Out performed.correct body part and side all verified prior to examination. Exam has beensent to [facility] - If further information is needed, thenumber is . Report will be faxed to ED and/or Xray.TECHNIQUE: Axial computed tomography images of the head/brain withou tintravenous contrast. All CT scans at this facility use dose modulation,iterative reconstruction, and/or weight-based dosing when appropriate to reduceradiation dose to as low as reasonably achievable.COMPARISON:None provided.FINDINGS:BRAIN: No evidence of acute hemorrhage. No mass lesion. No CT evidence for acuteterritorial infarct. No midline shift or extra-axial collections.VENTRICLES: No hydrocephalus.ORBITS: The orbits are unremarkable.SINUSES AND MASTOIDS: The paranasal sinuses and mastoid air cells are clear.BONES: No fracture.SOFT TISSUES: Unremarkable.IMPRESSION:No acute intracranial abnormality.While performing the above CT examination, radiation dose reduction wasaccomplished utilizing automated exposure control, adjusting of the mA and kVbased on the patient's body size and/or the use of imperative reconstructivetechniques.Electronically Signed By: 6 Clinical Report - Physicians/Mid Levels [facility] Emergency Department [address] [place] [address] Phone #: [phone]- [phone] 03/08/2021 23:38 Patient: SHANTELL MARRUFO Sex: M : 2000 Age: 20y Amandeep Hernandez MD , Radiologist Date/Time: 03/09/21 00:42.PROGRESS AND PROCEDURES Course of Care: 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 on exam, he is alert and interactive. he denies any hallucinations or thoughts of hurting himself. labs, ekg, ct head all negative. As I speak to the patient and his commander, pt is undergoing a lot of stress both personally and medically. he has chronic weakness to right arm. he has fractured his right wrist in the past. pt is not seeing a therapist. I discussed the importance of therapy so he can develop healthy ways to deal with stress. during this conversation he had an anxiety rash to his chest. by the end of the conversation he felt better and the rash had resolved. pt was discharged home. Patient/family counseled. Disposition: Discharged. Condition: good and stable.CLINICAL IMPRESSION Acute migraine headache. Possible anxiety reaction.INSTRUCTIONS (return if worse or any new symptoms. Take all medications as previously instructed. Start seeing a therapist or psychiatrist so you can develop coping mechanisms to deal with the significant amount of stress you are undergoing.). Warnings: Further evaluation is necessary. GENERAL WARNINGS: Return or contact your physician immediately if your condition worsens or changes unexpectedly, if not improving as expected, or if other problems arise. Your Current Medications: . No home medication. Follow-up: Follow up with your doctor even if well. Call for an appointment. Reason for referral: evaluation. Summary of care provided to patient via paper. Understanding of the discharge instructions verbalized by patient. 7 Clinical Report - Physicians/Mid Levels [facility] Emergency Department [address] [place] [address] Phone #: ext- [phone] 03/08/2021 23:38 Patient: SHANTELL MARRUFO Sex: M : 2000 Age: 20y(Electronically signed by Paulo Dunn MD 03/09/2021 03:46) Name Value Range Interpretation Code Description Data Norma [facility](s) Supporting Document(s) ID Date Data Source [id number] 03/09/2021 01:11:00 AM EDT [facility] Name Value Range Interpretation Code Description Data Norma e(s) Supporting Document(s) DRUG SCREEN URINE [facility] URINE DRUG SCREEN Amphetamine [Presence] in Urine by Screen method NEGATIVE NORMAL: N EGATIVE [facility] BARBITURATES NEGATIVE NORMAL: NEGATIVE [facility] BENZO NEGATIVE NORMAL: NEGATIVE [facility] COCAINE NEGATIVE NORMAL: NEGATIVE [facility] Tetrahydrocannabinol [Presence] in Urine NEGATIVE NORMAL: NEGATIVE [facility] OPIATES NEGATIVE NORMAL: NEGATIVE [facility] Phencyclidine [Presence] in Urine by Screen method NEGATIVE NOR MAL: NEGATIVE [facility] \\BLDo\\URINE DRUG SCR EEN INTERPRETATION\\BLDx\\ THE CUTOFFF LEVELS FOR DETECTION ARE FOLLOWS: AMPHETAMINES 1000 ng/ml BARBITUARATES 200 ng/ml BENZODIAZEPINES 100 ng/ml THC 50 ng/ml PHENCYCLIDINE 25 ng/ml OPIATES 300 ng/ml COCAINE 300 ng/ml ALL POSITIVES ARE CONSIDERED PRESUMPTIVE POSITIVE CONFIRMATION WILL BE PERFORMED AT PHYSICIAN REQUEST. ID Date Data Source [id number] 03/09/2021 01:05:00 AM EDT [facility] Name Value Range Interpretation Code Description Data Norma rce(s) Supporting Document(s) URINALYSIS [facility] URINALYSIS SOURCE R [facility] al COLOR yellow NORMAL: Yellow [facility]ital CLARITY clear NORMAL: Clear [facility] spital Specific gravity of Urine by Test strip 1.020 1.001 - 1.030 [facility] pH 6 5 - 9 [facility] al Glucose [Mass/volume] in Urine by Test strip NORM NORMAL: Negat [facility] Bilirubin.total [Presence] in Urine by Test strip NEG NORMAL: Negative [facility] Ketones [Presence] in Urine by Test strip NEG NORMAL: Negative [facility] Protein [Mass/volume] in Urine by Test strip NEG NORMAL: Negat [facility] Nitrite [Presence] in Urine by Test strip NEG NORMAL: Negative [facility] BLOOD NEG NORMAL: Negative [facility] Leukocyte esterase [Presence] in Urine by Test strip NEG PAULO L: Negative [facility] Urobilinogen [Mass/volume] in Urine by Test strip NOR less antwan n 1.0 mg/dL [facility] MICROSCOPIC Not Indicate [facility] ID Date Data Source [id number] 03/09/2021 12:42:00 AM EDT [facility] [address] [place] [address] ---------NAME--------- NUMBER SEX AGE ADMIT DISC. XRAY# F/C TYPE PATSY BARNETT D [id number] M 20 03/08/21 [id number] SB4 E/R DATE OF : 2000 M/R# [id number] #: [id number] TR-07 LOCATION: EMERGENCY DEPT TRANSCRIBED: 03/09/[address] HEAD W/O CONTRAST [id number] COMPLETED:03/09/21 15 DLA 51080 Reason(s): hallucinations PHYSICIAN: WILFREDO R A D I O L O G Y R E P O R T PATIENT HISTORY:ACTUAL DOSE 856.0 mGy*cm hallucinations chest painPatient male. Verification of 2 patient identifiers performed.Time Out performed. correct body part and side all verified prior toexamination. Exam has been sent to [facility] - If further informationis needed, the number is . Report will be faxed to ED and/orXray. / Exam Results (DICOM Hx)EXAM: CT Head Without IV contrast.CLINICAL HISTORY:ACTUAL DOSE 856.0 mGy*cm hallucinations chest pain Patientmale. Verification of 2 patient identifiers performed. Time Out performed.correct body part and side all verified prior to examination. Exam has beensent to [facility] - If further information is needed, thenumber is . Report will be faxed to ED and/or Xray.TECHNIQUE: Axial computed tomography images of the head/brain withoutintravenous contrast. All CT scans at this facility use dose modulation,iterative reconstruction, and/or weight-based dosing when appropriate to reduceradiation dose to as low as reasonably achievable.COMPARISON:None provided.FINDINGS:BRAIN: No evidence of acute hemorrhage. No mass lesion. No CT evidence for acuteterritorial infarct. No midline shift or extra-axial collections.VENTRICLES: No hydrocephalus.ORBITS: The orbits are unremarkable.SINUSES AND MASTOIDS: The paranasal sinuses and mastoid air cells are clear.BONES: No fracture.SOFT TISSUES: Unremarkable.IMPRESSION:No acute intracranial abnormality.While performing the above CT examination, radiation dose reduction wasaccomplished utilizing automated exposure control, adjusting of the mA and kVbased on the patient's body size and/or the use of imperative reconstructivetechniques.Electronically Signed By:Amandeep Hernandez MD , RadiologistDate/Time: 03/09/21 00:42 Name Value Range Interpretation Code Description Data Norma rce(s) Supporting Document(s) ID Date Data Source [id number] 03/09/2021 01:24:00 AM EDT [facility] Name Value Range Interpretation Code Description Data Norma rce(s) Supporting Document(s) Fibrin D-dimer FEU [Mass/volume] in Platelet poor plasma 0.31 ug /mL 0.27 - 0.50 [facility] ID Date Data Source [id number] 03/09/2021 01:05:00 AM EDT [facility] Name Value Range Interpretation Code Description Data Norma rce(s) Supporting Document(s) SALICYLATE <0.3 mg/dL 2.0 - 20.0 L [facility] ID Date Data Source [id number] 03/09/2021 01:02:00 AM EDT [facility] Name Value Range Interpretation Code Description Data Norma rce(s) Supporting Document(s) Thyrotropin [Units/volume] in Serum or Plasma by Detec tion limit <= 0.05 mIU/L 2.59 uIU/mL 0.47 - 5.01 [facility] ID Date Data Source [id number] 03/09/2021 12:52:00 AM EDT [facility] Name Value Range Interpretation Code Description Data Norma rce(s) Supporting Document(s) Acetaminophen [Presence] in Urine <5.0 UG/ML 0.0 - 30.0 [facility] ID Date Data Source [id number] 03/09/2021 12:52:00 AM EDT [facility] Name Value Range Interpretation Code Description Data Norma rce(s) Supporting Document(s) Ethanol [Moles/volume] in Blood <10.0 MG/DL [facility] ALCOHOL % 0.01 % 0.00 - 0.01 [facility] ital *FOR MEDICAL PURPOSES ONLY * ID Date Data Source [id number] 03/09/2021 12:52:00 AM EDT [facility] Name Value Range Interpretation Code Description Data Norma rce(s) Supporting Document(s) COMPREHENSIVE METABOLIC PANEL [facility] COMPREHENSIVE METABOLIC PANEL Sodium [Moles/volume] in Serum or Plasma 140 mEq/L 134 - 153 [facility] Potassium [Moles/volume] in Serum or Plasma 3.8 mEq/L 3.6 - 5.0 [facility] Chloride [Moles/volume] in Serum or Plasma 105 mEq/L 98 - 107 [facility] Carbon dioxide, total [Moles/volume] in Serum or Plasma 22 MEQ/L 22 - 30 [facility] Glucose [Mass/volume] in Serum or Plasma 96 MG/DL 70 - 99 [facility] BUN 18 MG/DL 7 - 21 [facility] al Creatinine [Mass/volume] in Serum or Plasma 1.0 MG/DL 0.7 - 1.5 [facility] BUN/CREAT 18 8 - 27 [facility] Protein [Mass/volume] in Serum or Plasma 7.5 G/DL 6.3 - 8.2 [facility] Albumin [Mass/volume] in Serum or Plasma 4.8 G/DL 3.9 - 5.0 [facility] Globulin [Mass/volume] in Serum by calculation 2.7 GM/DL 2.4 - 3.2 [facility] A/G RATIO 1.8 0.8 - 2.0 [facility] Calcium [Mass/volume] in Serum or Plasma 9.6 MG/DL 8.4 - 10.2 [facility] Bilirubin.total [Mass/volume] in Serum or Plasma <0.7 MG/DL 0.2 - 1.3 [facility] Alkaline phosphatase [Enzymatic activity/volume] in Serum or Plasma 63 U/L 38 - 126 [facility] Aspartate aminotransferase [Enzymatic activity/volume] in Serum or Plasma 20 U/L 5 - 40 [facility] Alanine aminotransferase [Enzymatic activity/volume] in Seru m or Plasma 12 U/L 7 - 56 [facility] Anion gap 3 in Serum or Plasma 13.0 mmol/L 8.0 - 16.0 [facility] 20 [facility] >60 mL/min [facility] ital AFR AMER GFR >60 mL/min [facility] spital Male GFR In terprentation 20-49 yrs >60 mL/min Normal 50-59 yrs >56 mL/min Normal 60-69 yrs >49 mL/min Normal 70-79yrs >42 mL/min Normal 80 and above >35 mL/min Normal Female GFR Interpretation 20-39 yrs >60 mL/min Normal 40-49 yrs >58 mL/min Normal 50-59 yrs >51 mL/min Normal 60-69 yrs >45 mL/min Normal 70-79 yrs >39 mL/min Normal 80 and above >32 mL/min Normal ID Date Data Source [id number] 03/09/2021 12:51:00 AM EDT [facility] Name Value Range Interpretation Code Description Data Norma rce(s) Supporting Document(s) CBC W/AUTOMATED DIFF [facility] COMPLETE BLOOD COUNT Leukocytes [#/volume] in Blood by Automated count 6.5 10^3/uL 4.2 - 1 1.0 [facility] Erythrocytes [#/volume] in Blood by Automated count 4.91 10^6/uL 4. 50 - 6.30 [facility] Hemoglobin [Mass/volume] in Blood 15.1 g/dL 14.0 - 16.0 [facility] Hematocrit [Volume Fraction] of Blood by Automated count 42.5 % 4 1.0 - 51.0 [facility] Erythrocyte mean corpuscular volume [Entitic volume] by Auto mated count 86.6 fL 80.0 - 94.0 [facility] Erythrocyte mean corpuscular hemoglobin [Entitic mass] by Automated count 30.8 pg 27.0 - 34.0 [facility] Erythrocyte mean corpuscular hemoglobin concentration [Mass/volume] by Automated count 35.5 g/dL 31.0 - 36.0 [facility] Erythrocyte distribution width [Ratio] by Automated count 12.4 % 11.5 - 14.8 [facility] Platelets [#/volume] in Blood by Automated count 288 10^3/uL 150 - 45 0 [facility] Platelet mean volume [Entitic volume] in Blood by Automated count 8.6 fL 7.4 - 10.4 [facility] Neutrophils/100 leukocytes in Blood by Automated count 50.7 % 37. 0 - 80.0 [facility] Lymphocytes/100 leukocytes in Blood by Manual count 36.0 % 25.0 - 40.0 [facility] Monocytes/100 leukocytes in Blood by Automated count 10.0 % 3.0 - 8.0 H [facility] Eosinophils/100 leukocytes in Blood by Automated count 1.9 % 0.0 - 7.0 [facility] Basophils/100 leukocytes in Blood by Automated count 1.1 % 0.0 - 2.0 [facility] %IG 0.3 % 0.0 - 0.0 H [facility] al %NRBC 0.0 % 0.0 - 0.0 [facility] al Neutrophils [#/volume] in Blood by Automated count 3.28 10^3/uL 2.00 - 6.90 [facility] Lymphocytes [#/volume] in Blood by Automated count 2.33 10^3/uL 0.60 - 3.40 [facility] Monocytes [#/volume] in Blood by Automated count 0.65 10^3/uL 0.00 - 0.90 [facility] Eosinophils [#/volume] in Blood by Automated count 0.12 10^3/uL 0.00 - 0.70 [facility] Basophils [#/volume] in Blood by Automated count 0.07 10^3/uL 0.00 - 0.20 [facility] #IG 0.02 10^3/uL 0.00 - 0.10 [facility] #NRBC 0.00 10^3/uL 0.00 - 0.00 [facility] MANUAL DIFF NOT INDICATED [facility] RBC MORPH NOT INDICATED [facility] spital ID Date Data Source [id number] 03/09/2021 12:50:00 AM EDT [facility] Name Value Range Interpretation Code Description Data Norma rce(s) Supporting Document(s) TROPONIN T <0.01 NG/ML 0.00 - 0.10 [facility] TROPONIN T0.1 ng/ml Recommended as the c linical threshold value forTroponin T. ID Date Data Source [id number] 12/12/2020 09:16:00 AM EDT [facility] Name Value Range Interpretation Code Description Data Norma rce(s) Supporting Document(s) SARS coronavirus 2 RNA Not Detected [facility] This lab was ordered by [facility] and reported by [facility]. Procedure Social History No Information Vital Signs ID Date Data Source UNK Name Value Range Interpretation Code Description Data Source(s) Diastolic blood pressure 80 mm[Hg] 80 mm[Hg] [facility] ([facility]) Heart rate 72 /min 72 /min [facility] ([facility]) Body height 72 [in_i] 72 [in_i] [facility] ([facility]) 6'0" Body weight 168.00 [lb_av] 168.00 [lb_av] [facility] ([facility]) Body mass index (BMI) [Ratio] 22.8 kg/m2 22.8 k g/m2 [facility] ([facility]) [place] body weight 178 [lb_av] 178 [lb_av] [facility] ([facility]) Systolic blood pressure 120 mm[Hg] 120 mm[Hg] M [facility] ([facility])
--- OUTSIDE RECORDS SUMMARY | 2021-07-31 05:57 | CCD | Continuity of Care Document ---
Author Shantell Davila M.D. Organization Unknown Address [address] [place] [id number] Phone [phone] Care Team Providers Care Purchasing Supervisor Name Role Phone Deondre SultanaM [phone] Problems Active Problems Provider Date Numbness of [...] lb BMI (Body Mass Index) 22.8 kg/m2 [place] Body Weight 178 lb Results Description No Information Available Procedures Date Code Description Status 04/25/2021 32205 Nerve Conduction 9-10 Studies Co mpleted 04/25/2021 26564 Needle Electromyogra phy Non Extremity Done With Nerve Conduction Completed 04/25/2021 41314 Needle Electromyography Complete , Five Or More Muscles Studied Completed 01/24/2021 09756 Nerve Conduction 9-10 Studies Co mpleted 01/24/2021 68772 Needle Electromyogra phy Non Extremity Done With Nerve Conduction Completed 01/24/2021 86589 Needle Electromyography Complete , Five Or More [...] Marisa Prado M.D. at Main office - [place] Functional Status Description No Information Available Mental Status Description No Information Available Referrals Description No Information Available
[2021-07-31] MEDS ORDERED: ACETAMINOPHEN 325 MG TAB PO ONE (07:15)
[2021-07-31] MEDS ORDERED: KETOROLAC 30 MG/ML 1ML VIAL IM ONE (07:15)
--- OUTSIDE RECORDS SUMMARY | 2021-07-31 07:46 | CCD ---
Author Author [facility] Organization [facility] Address Unknown Phone Unavailable Care Team Providers Care Greenskeeper Head Name Role Phone ANTIONE BLAS MD Unavailable [...] Unavailable ANTIONE BLAS MD Unavailable Unavailable ANTIONE LBAS MD Unavailable Unavailable ANTIONE BLAS MD Unavailable [...] is protected by Article 27-F of the [facility] Public Health law. If you continue you may have access to information: Regarding HIV / AIDS; Provided by facilities licensed or operated by the [facility] Office of Mental Health; or Provided by the [facility] Office for People With Developmental Disabilities. If such information is present, then the following [facility] mandated warning applies: This information has been [...] law may result in a fine or residential sentence or both. A general authorization for the release of medical or other information is NOT sufficient authorization for further disc losure. Encounters Encounter Providers Location Date Indications Data Source(s ) Outpatient Attender: ANTIONE BLAS MD Main office - [facility] 05/14/2021 03:00:00 PM EDT [facility] ([facility] Emergency Attender: PAULO DUNN MDConsultant: EDILBERTO KUMAR OWN 03/08/2021 11:55:00 PM EDT - 03/09/2021 04:05:00 AM EDT [facility] Patient discharged. Immunizations Vaccine Date Status Description Data Source(s) COVID-19 VACCINE Pfizer 12/31/2020 12:00:00 AM EDT completed [facility] Vaccine Series Complete: NOThis Data was Submitted to [facility] Via [facility]. Medications Medication Brand Name Start Date Product Form Dose Route Admi nistrative Instructions Pharmacy Instructions Status Indications Reaction Description Data Source(s) 8 HR Acetaminophen 650 MG Extended Release Oral Tablet [Tyle nol] Tylenol 8 Hour 01/22/2021 12:00:00 AM EDT active [facility] ([facility] ) Insurance Providers Payer name Policy type / Coverage type Policy ID Covered alliance party ID Covered alliance party's relationship to renner Policy Renner Plan Information [facility] ACTIVE DUTY [id number] SP [id number] [facility] HUMANA - O/P [id number] Problems, Conditions, and Diagnoses Code Display Name Description Problem Type Effective Dates Data Source(s) [id number] Migraine without aura, not intractable, without status migrainosus Migraine without aura, not intractable, without status migrainosus Diagnosis 03/08/2021 11:55:00 PM EDT [facility] R519 Headache, unspecified Headache, unspecified Diagnosis 03/08/2021 11:55:00 PM EDT [facility] [id number] 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 Problem 01/22/2021 12:00:00 AM EDT [facility] ([facility]) [id number] Numbness of hand Numbness of hand Problem 01/22/2021 12 :00:00 AM EDT [facility] ([facility] ) Surgeries/Procedures Procedure Description Date Indications Data Source(s) MRI BRAIN BRAIN STEM W/O CONTRAST MATERIAL 06/12/2021 12:00:00 AM EDT [facility] ([facility] ) MRI BRAIN BRAIN STEM W/O CONTRAST MATERIAL 06/12/2021 12:00:00 AM EDT [facility] ([facility] ) MRI Upper Extremity Joint 06/12/2021 12:00:00 AM EDT [facility] ([facility] ) MRI Upper Extremity Joint 06/12/2021 12:00:00 AM EDT [facility] ([facility] ) OFFICE CONSULTATION NEW/ESTAB PATIENT 60 MIN 12:00:00 AM EDT [facility] ([facility], ) Needle electromyography, each extremity, with related paraspinal areas, when performed, done with nerve conduction, amplitude and latency/velocity study; complete, five or more muscles studied, innervated by three or more nerves or four or more spinal levels (list separately in addition to the code for primary procedure). 04/25/2021 12:00:00 AM EDT [facility] ([facility], ) Needle Electromyography Non Extremity Done With Nerve Conduc tion 04/25/2021 12:00:00 AM EDT [facility] ([facility] ) Nerve Conduction 9-10 Studies 04/25/2021 12:00:00 AM E DT [facility] ([facility], ) Needle electromyography, each extremity, with related paraspinal areas, when performed, done with nerve conduction, amplitude and latency/velocity study; complete, five or more muscles studied, innervated by three or more nerves or four or more spinal levels (list separately in addition to the code for primary procedure). 01/24/2021 12:00:00 AM EDT [facility] ([facility] ) Needle Electromyography Non Extremity Done With Nerve Conduc tion 01/24/2021 12:00:00 AM EDT [facility] ([facility] ) Nerve Conduction 9-10 Studies 01/24/2021 12:00:00 AM E DT [facility] ([facility] ) Results ID Date Data Source [id number] 03/10/2021 09:58:00 [place] [address] RESPIRATORY CARE REPORT ==== ---------NAME------- NUMBER SEX AGE ADMIT DISC. XRAY# F/C TYPEROMAN SHANTELL Gutierrez [id number] M 20 03/08/21 03/09/21 950020 SB4 E/R DATE OF : 2000 M/R# [id number] PH#: [phone] TR-07 LOCATION: EMERGENCY DEPT EKG 12015 COMP LETE:03/09/21 00:34 [place] [id number] PHYSICIAN: WILFREDO DUNN NOR Name Value Range Interpretation Code Description Data Norma rce(s) Supporting Document(s) ID Date Data Source [id number] 03/08/2021 11:55:00 PM EDT [facility] 1 OrderSheet [facility] [address] [place] [place] [address] Phone #: ext- [phone] 03/08/2021 23:38 Patient: SHANTELL MARRUFO Sex: M : 2000 Age: 20yWEIGHT:74.3 kg (S) HEIGHT:72 inches (S) BMI:22.2ALLERGIES: No Known Drug AllergyCHIEF COMPLAINT: headacheDIAGNOSIS: Anxiety, MigraineLAB ORDERSOrder Description Priority Entered Acknowledged InitialedCBC w Diff STAT 23:44 03/08/2021 00:23 03/09/2021 Paulo Dunn MD; Radha Hickey R.N.CMP STAT 23:44 03/08/2021 00:23 03/09/2021 Paulo Dunn MD; Radha Hickey R.N.Troponin-T STAT 23:44 03/08/2021 00:23 03/09/2021 Paulo [...] Dunn MD; Radha Hickey R.N. 2 OrderSheet [facility] [address] [place] [place] [address] Phone #: ext- [phone] 03/08/2021 23:38 Patient: [...] rce(s) Supporting Document(s) ID Date Data Source [id number] 03/08/2021 11:55:00 PM EDT [facility] 1 Medication Reconciliation Report [facility] [address] [place] [address] Phone #: ext- [phone] 03/08/2021 23:38 Patient: [...] rce(s) Supporting Document(s) ID Date Data Source [id number] 03/08/2021 11:55:00 PM EDT [place] [address] Medication Administration Record [facility] [address] [place] [place] [address] Phone #: ext- [phone] 03/08/2021 23:38 Patient: SHANTELL MARRUFO Sex: M : 2000 Age: 20yWeight: 74.3 kgHeight/Length: 72 inBMI: 22.2ALLERGIES: No Known Drug Allergy Date/Time Medication Administered Medication OrderedGiven TORADOL [IVP] (KETOROLAC Toradol IVP 30 mg (NOW x1)03:52 03/09/2021 TROMETHAMINE)Radha Hickey R.N. Dose: 30 mg IVP Site: 1 [facility] Name Value Range Interpretation Code Description Data Norma rce(s) Supporting Document(s) ID Date Data Source [id number] 03/08/2021 11:55:00 PM EDT [facility] 1 General Instructions [facility] [address] [place] [place] [address] Phone #: ext- [phone] 03/08/2021 23:38 Patient: [...] you may feel: Helpless 2 General Instructions [facility] [address] [place] [place] [address] Phone #: ext- [phone] 03/08/2021 23:38 Patient: SHANTELL MARRUFO Sex: M [...] This will help you 3 General Instructions [facility] [address] [place] [address] Phone #: ext- [phone] 03/08/2021 23:38 Patient: SHANTELL MARRUFO Sex: M [...] andtemporary medicine to help you manage stress.Call [phone] if any of these happen: Trouble breathing Confusion Drowsiness or trouble wakening Fainting or loss of consciousness Rapid heart rate Seizure New chest pain that becomes more severe, lasts longer, or spreads into your shoulder, arm, neck, jaw, or back 4 General Instructions [facility] [address] [place] [address] Phone #: ext- [phone] 03/08/2021 23:38 Patient: SHANTELL MARRUFO Sex: M : 2000 Age: 20yWhen to seek medical adviceCall your healthcare provider right away if any of these happen: Your symptoms get worse Severe headache not relieved by rest and mild pain reliever [phone] [employer] [place] [address]. All rights reserved. This information is not [...] cause of your headaches. 5 General Instructions [facility] [address] [place] [address] Phone #: ext- [phone] 03/08/2021 23:38 Patient: [...] different medicine is advised. 6 General Instructions [facility] [address] [place] [address] Phone #: ext- [phone] 03/08/2021 23:38 Patient: [...] your face Trouble talking or seeing [employer]. [address] [place] [address], [place] [address]. All rights reserved. This information is not intended as asubstitute for professional medical care. Always follow your healthcare professional's instructions. You have been given the following additional information: Anxiety Reaction Headache, Migraine, Classic(Electronically signed by Pualo Dunn MD 03/09/2021 03:46) 7 General Instructions [facility] [address] [place] [place] [address] Phone #: [phone]- [phone] 03/08/2021 23:38 Patient: SHANTELL MARRUFO Sex: M : 2000 Age: 20y Name Value Range Interpretation Code Description Data Norma rce(s) Supporting Document(s) ID Date Data Source [id number] 03/08/2021 11:55:00 PM EDT [facility] 1 Clinical Report - Nurses [facility] [address] [place] [address] Phone #: ext- [phone] 03/08/2021 23:38 Patient: [...] behavior included 2 Clinical Report - Nurses [facility] [address] [place] [address] Phone #: ext- [phone] 03/08/2021 23:38 Patient: SHANTELL MARRUFO Sex: M [...] Hickey R.N. 3 Clinical Report - Nurses [facility] [address] [place] [address] Phone #: ext- [phone] 03/08/2021 23:38 Patient: [...] Patient verbalized understanding. Written instructions provided in Palestinian. The patient was discharged home and accompanied by corporate real estate manager. He left ambulatory and via private vehicle. Tax Credit Le[employer] Consultant driving. --04:05 03/09/21 Radha Hickey R.N. 04:03 03/09/21. BP: 119/73. MAP: 88. HR: 79. RR: 16. O2 saturation: 99% on room air. Temp: 98.1 F. Pain level now: 0/10. --04:05 03/09/21 Radha Hickey R.N.Locked/Released at 03/09/2021 04:05 by Radha Hickey R.N. Name Value Range Interpretation Code Description Data Norma rce(s) Supporting Document(s) ID Date Data Source [id number] 03/08/2021 11:55:00 PM EDT [facility] 1 Clinical Report - Physicians/Mid Levels [facility] [address] [place] [address] Phone #: ext- [phone] 03/08/2021 23:38 Patient: SHANTELL MARRUFO Sex: M [...] NOTES 2 Clinical Report - Physicians/Mid Levels [facility] [address] [place] [address] Phone #: ext- [phone] 03/08/2021 23:38 Patient: SHANTELL MARRUFO Sex: M [...] 0.00) 3 Clinical Report - Physicians/Mid Levels [facility] [address] [place] [address] Phone #: ext- [phone] 03/08/2021 23:38 Patient: [...] Male GFR Interprentation 20-49 yrs >60 mL/min Deuetx69-22 yrs >56 mL/min Normal 60-69 yrs >49 mL/min Normal 70-79yrs>42 mL/min Normal 80 and above >35 mL/min Normal Female GFRInterpretation 20-39 yrs >60 mL/min Normal 40-49 yrs >58 mL/minNormal 50-59 yrs >51 mL/min Normal 60-69 yrs >45 mL/min Zoghjo87- 79 yrs >39 mL/min Normal 80 and [...] (0.47 - 5.01)ETOH: (CHAYO: 03/09/2021 00:21) ( [facility] 03/09/2021 00:52) Final results Test Result Flag Units (Reference) ALCOHOL <10.0 MG/DL ALCOHOL % 0.01 % (0.00 - 0.01) *FOR MEDICAL PURPOSES ONL Y*Urinalysis: (CHAYO: 03/09/2021 00:45) ( [facility] 03/09/2021 01:05) Final results Test Result Flag Units (Reference) URINALYSIS 4 Clinical Report - Physicians/Mid Levels [facility] [address] [place] [address] Phone #: ext- [phone] 03/08/2021 23:38 Patient: [...] Not IndicateDrug Screen-Urine: (CHAYO: 03/09/2021 00:45) ( [facility] 03/09/2021 01:12) Final results Test Result [...] PRESUMPTIVE POSITIVE CONFIRMATION WILL BE PERFORMED AT [facility].Acetaminophen Level: (CHAYO: 03/09/2021 00:21) ( [facility] 03/09/2021 00:52) Final results Test Result Flag Units (Reference) ACETAMINOPHEN <5.0 UG/ML (0.0 - 30.0)Salicylate Level: (CHAYO: 03/09/2021 00:21) ( [facility] 03/09/2021 01:05) Final results Test Result Flag Units (Reference) SALICYLATE <0.3 L mg/dL (2.0 - 20.0)D-Dimer: (CHAYO: 03/09/2021 00:21) ( [facility] 03/09/2021 01:24) Final results Test Result Flag Units (Reference) D-DIMER QUANT 0.31 ug/mL (0.27 - 0.50)CT Head W/O Cont: (CHAYO: 03/08/2021 23:55) ( [facility] 03/09/2021 00:42) Final results Exam CT HEAD W/[place] [address] ---------NAME--------- NUMBER SEX AGE ADMIT DISC. XRAY# F/C TYPE 5 Clinical Report - Physicians/Mid Levels [facility] [address] [place] [address] Phone #: ext- [phone] 03/08/2021 23:38 Patient: SHANTELL MARRUFO Sex: M : 2000 Age: 20yROMAN SHANTELL Gutierrez [id number] M 20 03/08/21 [id number] SB4 E/R DATE OF : 2000 M/R# [id number] #: [id number] TR-07 LOCATION: EMERGENCY DEPT TRANSCRIBED: 03/09/[address] HEAD W/O CONTRAST 10774 COMPLETED:03/09/21 15 DLA 12553 Reason(s): hallucinations PHYSICIAN: WILFREDO R A D I O L O G Y R E P O R T PATIENT HISTORY:ACTUAL DOSE 856.0 mGy*cm hallucinations chest painPatient male. Verification of 2 patient identifiers performed.Time Out performed. correct body part and side all verified prior toexamination. Exam has been sent to [facility] - If further informationis needed, the number is . Report will be faxed to ED and/orXray. / Exam Results (DICOM Hx)EXAM: CT Head Without IV contrast.CLINICAL HISTORY:ACTUAL DOSE 856.0 mGy*cm hallucinations chest pain Patientmale. Verification of 2 patient identifiers performed. Time Out performed.correct body part and side all verified prior to examination. Exam has beensent to [facility] - If further information is needed, [...] By: 6 Clinical Report - Physicians/Mid Levels [facility] [address] [place] [address] Phone #: [phone]- [phone] 03/08/2021 23:38 Patient: SHANTELL MARRUFO Sex: M [...] patient. 7 Clinical Report - Physicians/Mid Levels [facility] [address] [place] [address] Phone #: ext- [phone] 03/08/2021 23:38 Patient: SHANTELL MARRUFO Sex: M : 2000 Age: 20y(Electronically signed by Paulo Dunn MD 03/09/2021 03:46) Name Value Range Interpretation Code Description Data [facility](s) Supporting Document(s) ID Date Data Source [id number] 03/09/2021 01:11:00 AM EDT [facility] Name Value Range Interpretation Code Description Data Norma e(s) Supporting Document(s) DRUG SCREEN URINE [facility] URINE DRUG SCREEN Amphetamine [Presence] in Urine by Screen method NEGATIVE NORMAL: N EGATIVE [facility] BARBITURATES NEGATIVE NORMAL: NEGATIVE [facility] BENZO NEGATIVE NORMAL: NEGATIVE [facility] COCAINE NEGATIVE NORMAL: NEGATIVE [facility] Tetrahydrocannabinol [Presence] in Urine NEGATIVE NORMAL: NEGATIVE [facility] OPIATES NEGATIVE NORMAL: NEGATIVE [facility] Phencyclidine [Presence] in Urine by Screen method NEGATIVE NOR MAL: NEGATIVE [facility] \\BLDo\\URINE DRUG SCR EEN INTERPRETATION\\BLDx\\ THE CUTOFFF LEVELS FOR DETECTION ARE FOLLOWS: AMPHETAMINES 1000 ng/ml BARBITUARATES 200 ng/ml BENZODIAZEPINES 100 ng/ml THC 50 ng/ml PHENCYCLIDINE 25 ng/ml OPIATES 300 ng/ml COCAINE 300 ng/ml ALL POSITIVES ARE CONSIDERED PRESUMPTIVE POSITIVE CONFIRMATION WILL BE PERFORMED AT PHYSICIAN REQUEST. ID Date Data Source [id number] 03/09/2021 01:05:00 AM EDT [facility] Name Value Range Interpretation Code Description Data Norma rce(s) Supporting Document(s) URINALYSIS [facility] URINALYSIS SOURCE R [facility] al COLOR yellow NORMAL: Yellow [facility] ospital CLARITY clear NORMAL: Clear [facility] spital Specific gravity of Urine by Test strip 1.020 1.001 - 1.030 [facility] pH 6 5 - 9 [facility] al Glucose [Mass/volume] in Urine by Test strip NORM NORMAL: Negat [facility] Bilirubin.total [Presence] in Urine by Test strip NEG NORMAL: Negative [facility] Ketones [Presence] in Urine by Test strip NEG NORMAL: Negative [facility] Protein [Mass/volume] in Urine by Test strip NEG NORMAL: Negat [facility] Nitrite [Presence] in Urine by Test strip NEG NORMAL: Negative [facility] BLOOD NEG NORMAL: Negative [facility] Leukocyte esterase [Presence] in Urine by Test strip NEG PAULO L: Negative [facility] Urobilinogen [Mass/volume] in Urine by Test strip NOR less antwan n 1.0 mg/dL [facility] MICROSCOPIC Not Indicate [facility] ID Date Data Source [id number] 03/09/2021 12:42:00 AM EDT [facility] [address] [place] [address] ---------NAME--------- NUMBER SEX AGE ADMIT DISC. XRAY# F/C TYPE PATSY BARNETT D [id number] M 20 03/08/21 [id number] SB4 E/R DATE OF : 2000 M/R# [id number] #: [id number] TR-07 LOCATION: EMERGENCY DEPT TRANSCRIBED: 03/09/[address] HEAD W/O CONTRAST 30442 COMPLETED:03/09/21 15 DLA 25722 Reason(s): hallucinations PHYSICIAN: WILFREDO R A D I O L O G Y R E P O R T PATIENT HISTORY:ACTUAL DOSE 856.0 mGy*cm hallucinations chest painPatient male. Verification of 2 patient identifiers performed.Time Out performed. correct body part and side all verified prior toexamination. Exam has been sent to [facility] - If further informationis needed, the number is . Report will be faxed to ED and/orXray. / Exam Results (DICOM Hx)EXAM: CT Head Without IV contrast.CLINICAL HISTORY:ACTUAL DOSE 856.0 mGy*cm hallucinations chest pain Patientmale. Verification of 2 patient identifiers performed. Time Out performed.correct body part and side all verified prior to examination. Exam has beensent to [facility] - If further information is needed, [...] rce(s) Supporting Document(s) ID Date Data Source [id number] 03/09/2021 01:24:00 AM EDT [facility] Name Value Range Interpretation Code Description Data Norma rce(s) Supporting Document(s) Fibrin D-dimer FEU [Mass/volume] in Platelet poor plasma 0.31 ug /mL 0.27 - 0.50 [facility] ID Date Data Source [id number] 03/09/2021 01:05:00 AM EDT [facility] Name Value Range Interpretation Code Description Data Norma rce(s) Supporting Document(s) SALICYLATE <0.3 mg/dL 2.0 - 20.0 L [facility] ID Date Data Source [id number] 03/09/2021 01:02:00 AM EDT [facility] Name Value Range Interpretation Code Description Data Norma rce(s) Supporting Document(s) Thyrotropin [Units/volume] in Serum or Plasma by Detec tion limit <= 0.05 mIU/L 2.59 uIU/mL 0.47 - 5.01 [facility] ID Date Data Source [id number] 03/09/2021 12:52:00 AM EDT [facility] Name Value Range Interpretation Code Description Data Norma rce(s) Supporting Document(s) Acetaminophen [Presence] in Urine <5.0 UG/ML 0.0 - 30.0 [facility] ID Date Data Source [id number] 03/09/2021 12:52:00 AM EDT [facility] Name Value Range Interpretation Code Description Data Norma rce(s) Supporting Document(s) Ethanol [Moles/volume] in Blood <10.0 MG/DL [facility] ALCOHOL % 0.01 % 0.00 - 0.01 [facility] ital *FOR MEDICAL PURPOSES ONLY * ID Date Data Source [id number] 03/09/2021 12:52:00 AM EDT [facility] Name Value Range Interpretation Code Description Data Norma rce(s) Supporting Document(s) COMPREHENSIVE METABOLIC PANEL [facility] COMPREHENSIVE METABOLIC PANEL Sodium [Moles/volume] in Serum or Plasma 140 mEq/L 134 - 153 [facility] Potassium [Moles/volume] in Serum or Plasma 3.8 mEq/L 3.6 - 5.0 [facility] Chloride [Moles/volume] in Serum or Plasma 105 mEq/L 98 - 107 [facility] Carbon dioxide, total [Moles/volume] in Serum or Plasma 22 MEQ/L 22 - 30 [facility] Glucose [Mass/volume] in Serum or Plasma 96 MG/DL 70 - 99 [facility] BUN 18 MG/DL 7 - 21 [facility] al Creatinine [Mass/volume] in Serum or Plasma 1.0 MG/DL 0.7 - 1.5 [facility] BUN/CREAT 18 8 - 27 [facility] al Protein [Mass/volume] in Serum or Plasma 7.5 G/DL 6.3 - 8.2 [facility] Albumin [Mass/volume] in Serum or Plasma 4.8 G/DL 3.9 - 5.0 [facility] Globulin [Mass/volume] in Serum by calculation 2.7 GM/DL 2.4 - 3.2 [facility] A/G RATIO 1.8 0.8 - 2.0 [facility] Calcium [Mass/volume] in Serum or Plasma 9.6 MG/DL 8.4 - 10.2 [facility] Bilirubin.total [Mass/volume] in Serum or Plasma <0.7 MG/DL 0.2 - 1.3 [facility] Alkaline phosphatase [Enzymatic activity/volume] in Serum or Plasma 63 U/L 38 - 126 [facility] Aspartate aminotransferase [Enzymatic activity/volume] in Serum or Plasma 20 U/L 5 - 40 [facility] Alanine aminotransferase [Enzymatic activity/volume] in Seru m or Plasma 12 U/L 7 - 56 [facility] Anion gap 3 in Serum or Plasma 13.0 mmol/L 8.0 - 16.0 [facility]GE 20 [facility] >60 mL/min [facility] ital AFR AMER GFR >60 mL/min [facility] spital Male GFR In terprentation 20-49 yrs [...] >32 mL/min Normal ID Date Data Source [id number] 03/09/2021 12:51:00 AM EDT [facility] Name Value Range Interpretation Code Description Data Norma rce(s) Supporting Document(s) CBC W/AUTOMATED DIFF [facility] COMPLETE BLOOD COUNT Leukocytes [#/volume] in Blood by Automated count 6.5 10^3/uL 4.2 - 1 1.0 [facility] Erythrocytes [#/volume] in Blood by Automated count 4.91 10^6/uL 4. 50 - 6.30 [facility] Hemoglobin [Mass/volume] in Blood 15.1 g/dL 14.0 - 16.0 [facility] Hematocrit [Volume Fraction] of Blood by Automated count 42.5 % 4 1.0 - 51.0 [facility] Erythrocyte mean corpuscular volume [Entitic volume] by Auto mated count 86.6 fL 80.0 - 94.0 [facility] Erythrocyte mean corpuscular hemoglobin [Entitic mass] by Automated count 30.8 pg 27.0 - 34.0 [facility] Erythrocyte mean corpuscular hemoglobin concentration [Mass/volume] by Automated count 35.5 g/dL 31.0 - 36.0 [facility] Erythrocyte distribution width [Ratio] by Automated count 12.4 % 11.5 - 14.8 [facility] Platelets [#/volume] in Blood by Automated count 288 10^3/uL 150 - 45 0 [facility] Platelet mean volume [Entitic volume] in Blood by Automated count 8.6 fL 7.4 - 10.4 [facility] Neutrophils/100 leukocytes in Blood by Automated count 50.7 % 37. 0 - 80.0 [facility] Lymphocytes/100 leukocytes in Blood by Manual count 36.0 % 25.0 - 40.0 [facility] Monocytes/100 leukocytes in Blood by Automated count 10.0 % 3.0 - 8.0 H [facility] Eosinophils/100 leukocytes in Blood by Automated count 1.9 % 0.0 - 7.0 [facility] Basophils/100 leukocytes in Blood by Automated count 1.1 % 0.0 - 2.0 [facility] %IG 0.3 % 0.0 - 0.0 H [facility] al %NRBC 0.0 % 0.0 - 0.0 [facility] al Neutrophils [#/volume] in Blood by Automated count 3.28 10^3/uL 2.00 - 6.90 [facility] Lymphocytes [#/volume] in Blood by Automated count 2.33 10^3/uL 0.60 - 3.40 [facility] Monocytes [#/volume] in Blood by Automated count 0.65 10^3/uL 0.00 - 0.90 [facility] Eosinophils [#/volume] in Blood by Automated count 0.12 10^3/uL 0.00 - 0.70 [facility] Basophils [#/volume] in Blood by Automated count 0.07 10^3/uL 0.00 - 0.20 [facility] #IG 0.02 10^3/uL 0.00 - 0.10 [facility] #NRBC 0.00 10^3/uL 0.00 - 0.00 [facility] ospital MANUAL DIFF NOT INDICATED [facility] RBC MORPH NOT INDICATED [facility] spital ID Date Data Source [id number] 03/09/2021 12:50:00 AM EDT [facility] Name Value Range Interpretation Code Description Data Norma rce(s) Supporting Document(s) TROPONIN T <0.01 NG/ML 0.00 - 0.10 [facility] ospital TROPONIN T0.1 ng/ml Recommended as the c linical threshold value forTroponin T. ID Date Data Source [id number] 12/12/2020 09:16:00 AM EDT [facility] Name Value Range Interpretation Code Description Data Norma rce(s) Supporting Document(s) SARS coronavirus 2 RNA Not Detected [facility] [place] This lab was ordered by [facility] and reported by [facility]. Procedure Social History No Information Vital Signs ID Date Data Source UNK Name Value Range Interpretation Code Description Data Source(s) [place] body weight 178 [lb_av] 178 [lb_av] [facility] ([facility]) Diastolic blood pressure 80 mm[Hg] 80 mm[Hg] [facility] ([facility]) Heart rate 72 /min 72 /min [facility] ([facility]) Body height 72 [in_i] 72 [in_i] [facility] ([facility]) 6'0" Body weight 168.00 [lb_av] 168.00 [lb_av] [facility] ([facility]) Body mass index (BMI) [Ratio] 22.8 kg/m2 22.8 k g/m2 [facility] ([facility]) Systolic blood pressure 120 mm[Hg] 120 mm[Hg] [facility]
[2021-07-31 08:41] VITALS: BP 119/73
[2021-07-31] MEDS ORDERED: TOPI25CA3 PO (08:51)
== END 2021-07-31 09:05 | disposition home or self-care (01) ==
LOC: M ED 05:51
DX: G43.909 Migraine, unspecified, not intractable, without status migrainosus (principal)
CPT/HCPCS: 96372; 99283; J1885